=== PATIENT | male | born 1945 | race Caucasian/White ===

== ENCOUNTER 2020-03-02 00:29 | Outpatient (CLI) | payer MEDICARE, OTHER, SELFPAY ==
--- NOTE | 2020-03-02 08:45 | DI.NM_ITS ---
APPROVED REPORT Exam: Exercise Treadmill Patient Location: Out-Patient Room/Bed: Stress Nurse: Heather Gordillo RN BMI: 26.97 Baseline Rhythm: Sinus Bradycardia Indications: Patient reports SOB with activity and occasional midsternal chest pressure not associate d with activity. He states on February 25 he went to the ED for a heart rate of 162 and was treated then sent home. Medical History Medical History: Paroxysmal Atrial Fibrillation, Chronic Ischemic Heart Disease, Atherosclerosis of C oronary Artery without Angina Pectoris. Cardiac Medications: Amlodipine, Aspirin, Atorvastatin, Benazepril, Carvedilol, Fish Oil. Allergies: No known drug allergies Cardiac Risk Factors: FHX of CAD, HTN, Hyperlipidemia, Diabetes (insulin) Previous Cardiac Procedures: None Pretest Chest Pain Characteristics: None Exercise History: Physically active Physical Disabilities: None Lung Sounds: Clear to auscultation Heart Sounds: Bradycardia Stress Test Details Test: Exercise stress testing was performed using a Nura protocol. Nuclear Acquisition: Rest Tc-99m/Stress Tc-99m 1 day Rest Isotope: Tc-99m Sestamibi. Dose: 11.6 Date: 03/02/2020 Injection Time: 0850 Stress Isotope: Tc-99m Sestamibi. Dose: 37.6 Date: 03/02/2020 Injection Time: 1005 HR Resting HR Supine: 50 bpm Max Heart Rate (APMHR): 144 bpm Resting HR Standin bpm Target HR (85% APMHR): 122 bpm Max HR Achieved: 132 bpm % of APMHR: 91 HR response to stress: Normal HR response to stress BP Resting BP Supine: 150/68 mmHg Resting BP Standin/64 mmHg Max BP: 170/66 mmHg BP response to stress: Normal blood pressure response to stress. ECG Resting ECG: Sinus Bradycardia Ectopy: PAC'S Stress ECG: Sinus Tachycardia ST Change: Upsloping ST depression Lead(s): V3, V4, V5, V6 Stage: [address] Deviation: 1 mm Arrhythmia: None Comment: Chest Pressure (2/10) at 56 seconds of exercise. Recovery ST Change: ST Elevation Lead(s): ST depression Comment: ST segment depression till 29 seconds of recovery. Clinical Reason for Termination: SOB Stress Symptoms: Chest pressure at 56 seconds of exercise until approximately 4 minutes 9 seconds of recovery. Maximum chest pressure discomfort rated 5/10. Exercise duration: 4 min25 sec Highest Stage Reached: Stage 2: 2.5 mph at 12% grade. Exercise capacity: 6.33 METs Functional Capacity: Moderately diminished capacity Stress ECG Conclusion 1. This is an exercise nuclear stress test. Patient exercised for 4 minutes (6 METS) 2. Patient had 2 out of 10 chest pressure during exercise. 3. Patient had upsloping [address] depressions during stress. Stress Test Summary STAGE Time (mins) Speed (mph) Grade (%) HR BP SYMPTOMS METS Supine 50 150/68 Standing 58 168/64 1 3 1.7 10 117 170/66 4.6 1 min recovery 114 176/62 3 min recovery 76 154/68 6 min recovery 57 144/70 MPI Conclusion Patient's ejection fraction was 53% with stress. There were no wall motion abnormalities. There is no evidence of reversible or fixed ischemia on the imaging portion of this exam. This represents a discordant stress test with abnormal ECG accompanied by normal imaging. Radiologist Interpretation Radiologist Interpretation by: Barry Moreno MD Interpretation Date/Time: 03/04/2020 13:30:52
== END 2020-03-02 00:49 ==
PROVIDERS: PCP Family Medicine; Visit Provider Family Medicine
DX: R07.89 Other chest pain (principal); R06.02 Shortness of breath; R06.09 Other forms of dyspnea; R94.30 Abnormal result of cardiovascular function study, unspecified; I48.0 Paroxysmal atrial fibrillation; I25.10 Atherosclerotic heart disease of native coronary artery without angina pectoris; I10 Essential (primary) hypertension; E78.5 Hyperlipidemia, unspecified; Z82.49 Family history of ischemic heart disease and other diseases of the circulatory system
CPT/HCPCS: 78452; 93016; 93018; 93017

== ENCOUNTER 2020-07-16 13:00 | Outpatient (RCR) | payer MEDICARE, OTHER, SELFPAY ==
[2020-07-16 13:13] LABS: HCT 29.9 % (40.0-50.0); HGB 9.5 g/dL (13.5-17.5); MCH 30.8 pg (27.0-33.0); MCHC 31.8 % (32.0-36.0); MCV 97.1 fL (80-95); MPV 12.7 fL (8.0-11.0); Nucleated RBC 0 %; RBC 3.08 10^6/uL (4.36-5.78); RDW-SD 63.7 fL
[2020-07-16 13:31] LABS: ALT 32 U/L (16-63); AST 21 U/L (15-37); Albumin 3.5 g/dL (3.4-5.0); Alkaline Phosphatase 67 U/L (46-116); Anion Gap 9.3 mmol/L (3-11); BUN 23 mg/dL (7-18); Bilirubin, Total 0.3 mg/dL (0.2-1.0); CO2 23.7 mmol/L (21.0-32.0); CREATININE 0.99 mg/dL (0.70-1.30); Calcium 8.2 mg/dL (8.5-10.1); Chloride 106 mmol/L (98-107); Glucose 208 mg/dL (74-106); Potassium 4.5 mmol/L (3.5-5.1); Sodium 139 mmol/L (136-145); Total Protein 6.4 g/dL (6.4-8.2)
[2020-07-16 13:47] LABS: Absolute Lymphocyte Count 0.84 10^3/uL (1.2-3.4); Platelet Count 135 10^3/uL (130-400)
[2020-07-16 13:48] LABS: Absolute Basophil Count 0.04 10^3/uL (0.0-0.2); Absolute Eosinophil Count 0.13 10^3/uL (0.0-0.7); Absolute Monocyte Count 0.04 10^3/uL (0.1-0.8)
[2020-07-16] MEDS: Darbepoetin 300 MCG SYR SC (13:48)
[2020-07-16 13:49] LABS: Absolute Neutrophil Count 0.86 10^3/uL (1.2-6.7); Anisocytosis 2+; Diff Comment Manual Differential; Microcytosis 1+
[2020-07-16 13:50] LABS: Poikilocytes 3+
== END 2020-07-21 23:59 | disposition home or self-care (01) ==
LOC: INF 13:00
PROVIDERS: Internal Medicine Hematology & Oncology; PCP Family Medicine; Visit Provider Nurse Practitioner Family
DX: D47.1 Chronic myeloproliferative disease (principal); D64.9 Anemia, unspecified; C94.6 Myelodysplastic disease, not elsewhere classified
CPT/HCPCS: 36415; 80053; 96372; 85025; J0881

== ENCOUNTER 2020-08-13 05:51 | Outpatient (RCR) | payer MEDICARE, OTHER, SELFPAY ==
[2020-07-30 12:56] LABS: Abs Immature Grans 0.02 10^3/uL (0.0-0.06); Absolute Basophil Count 0.04 10^3/uL (0.0-0.2); Absolute Eosinophil Count 0.04 10^3/uL (0.0-0.7); Absolute Lymphocyte Count 0.82 10^3/uL (1.2-3.4); Absolute Monocyte Count 0.11 10^3/uL (0.1-0.8); Basophils % 2.1; Eosinophils % 2.1; HCT 30.4 % (40.0-50.0); Lymphocytes % 42.5; MCH 31.3 pg (27.0-33.0); MCHC 32.9 % (32.0-36.0); MPV 13.5 fL (8.0-11.0); Monocytes % 5.7; Neutrophils % 46.6; Nucleated RBC 0 %; RDW-SD 62.6 fL
[2020-07-30 13:10] LABS: ALT 29 U/L (16-63); AST 18 U/L (15-37); Albumin 3.5 g/dL (3.4-5.0); Alkaline Phosphatase 60 U/L (46-116); Anion Gap 9.1 mmol/L (3-11); BUN 19 mg/dL (7-18); Bilirubin, Total 0.4 mg/dL (0.2-1.0); CO2 25.9 mmol/L (21.0-32.0); CREATININE 1.01 mg/dL (0.70-1.30); Calcium 8.6 mg/dL (8.5-10.1); Chloride 104 mmol/L (98-107); Glucose 190 mg/dL (74-106); Potassium 4.2 mmol/L (3.5-5.1); Sodium 139 mmol/L (136-145); Total Protein 6.3 g/dL (6.4-8.2)
[2020-07-30 13:26] LABS: Diff Comment Agrees w/ Instrument; Hypochromasia 1+; Polychromasia Present
[2020-07-30 13:28] LABS: Poikilocytes 3+
[2020-07-30 13:42] LABS: Platelet Count 145 10^3/uL (130-400); WBC 1.93 10^3/uL (4.4-10.8)
[2020-07-30] MEDS: Darbepoetin 300 MCG SYR SC (13:44)
== END 2020-08-21 23:59 | disposition home or self-care (01) ==
LOC: INF 05:51
PROVIDERS: Internal Medicine Hematology & Oncology; PCP Family Medicine; Visit Provider Nurse Practitioner Family
DX: D47.1 Chronic myeloproliferative disease (principal); D64.9 Anemia, unspecified; C94.6 Myelodysplastic disease, not elsewhere classified
CPT/HCPCS: 36415; 80053; 96372; 85025; J0881

== ENCOUNTER 2020-09-03 03:47 | Outpatient (RCR) | payer MEDICARE, OTHER, SELFPAY ==
[2020-09-03 12:55] LABS: HCT 29.5 % (40.0-50.0); HGB 9.8 g/dL (13.5-17.5); MCH 31.3 pg (27.0-33.0); MCHC 33.2 % (32.0-36.0); MCV 94.2 fL (80-95); Nucleated RBC 0 %; RBC 3.13 10^6/uL (4.36-5.78); RDW 16.1 % (11.8-14.1); RDW-SD 56.2 fL; WBC 2.09 10^3/uL (4.4-10.8)
[2020-09-03 13:03] LABS: ALT 34 U/L (16-63); AST 22 U/L (15-37); Albumin 3.4 g/dL (3.4-5.0); Alkaline Phosphatase 65 U/L (46-116); Anion Gap 9.2 mmol/L (3-11); BUN 19 mg/dL (7-18); Bilirubin, Total 0.3 mg/dL (0.2-1.0); CO2 24.8 mmol/L (21.0-32.0); CREATININE 0.95 mg/dL (0.70-1.30); Calcium 8.1 mg/dL (8.5-10.1); Chloride 104 mmol/L (98-107); Glucose 242 mg/dL (74-106); Potassium 4.6 mmol/L (3.5-5.1); Sodium 138 mmol/L (136-145); Total Protein 6.4 g/dL (6.4-8.2)
[2020-09-03 13:16] LABS: Absolute Eosinophil Count 0.13 10^3/uL (0.0-0.7); Absolute Lymphocyte Count 0.59 10^3/uL (1.2-3.4); Absolute Monocyte Count 0.08 10^3/uL (0.1-0.8); Absolute Neutrophil Count 1.25 10^3/uL (1.2-6.7)
[2020-09-03 13:18] LABS: Anisocytosis 1+; Diff Comment Manual Differential; Other Cells % 2
[2020-09-03 13:19] LABS: Ovalocytes 2+; Poikilocytes 3+
[2020-09-03] MEDS: Darbepoetin 300 MCG SYR SC (13:20)
[2020-09-03 13:21] LABS: Platelet Count 146 10^3/uL (130-400)
== END 2020-09-20 23:59 | disposition home or self-care (01) ==
LOC: INF 03:47
PROVIDERS: Internal Medicine Hematology & Oncology; PCP Family Medicine; Visit Provider Nurse Practitioner Family
DX: D47.1 Chronic myeloproliferative disease (principal)
CPT/HCPCS: 36415; 80053; 96372; 85025; J0881

== ENCOUNTER 2020-10-21 14:00 | Outpatient (RCR) | payer MEDICARE, OTHER, SELFPAY ==
[2020-09-24 09:38] LABS: Abs Immature Grans 0.03 10^3/uL (0.0-0.06); Absolute Basophil Count 0.04 10^3/uL (0.0-0.2); Absolute Eosinophil Count 0.05 10^3/uL (0.0-0.7); Absolute Lymphocyte Count 0.75 10^3/uL (1.2-3.4); Absolute Monocyte Count 0.15 10^3/uL (0.1-0.8); Absolute Neutrophil Count 0.88 10^3/uL (1.2-6.7); Basophils % 2.1; Eosinophils % 2.6; HCT 30.2 % (40.0-50.0); HGB 9.7 g/dL (13.5-17.5); Immature Grans % 1.6; Lymphocytes % 39.5; MCH 30.8 pg (27.0-33.0); MCHC 32.1 % (32.0-36.0); MCV 95.9 fL (80-95); Monocytes % 7.9; Neutrophils % 46.3; Nucleated RBC 0 %; RBC 3.15 10^6/uL (4.36-5.78); RDW 16.9 % (11.8-14.1); RDW-SD 58.7 fL
[2020-09-24 09:50] LABS: ALT 37 U/L (16-63); AST 20 U/L (15-37); Albumin 3.8 g/dL (3.4-5.0); Alkaline Phosphatase 71 U/L (46-116); Anion Gap 4.6 mmol/L (3-11); BUN 18 mg/dL (7-18); Bilirubin, Total 0.3 mg/dL (0.2-1.0); CO2 25.4 mmol/L (21.0-32.0); CREATININE 0.95 mg/dL (0.70-1.30); Calcium 8.2 mg/dL (8.5-10.1); Chloride 107 mmol/L (98-107); Glucose 91 mg/dL (74-106); Potassium 4.2 mmol/L (3.5-5.1); Sodium 137 mmol/L (136-145); Total Protein 6.7 g/dL (6.4-8.2)
[2020-09-24] MEDS: Darbepoetin 300 MCG SYR SC (10:01)
[2020-09-24 10:03] LABS: Platelet Count 129 10^3/uL (130-400)
[2020-09-24 10:04] LABS: Anisocytosis 2+; Diff Comment Diff Reviewed; Hypochromasia 1+; Microcytosis 1+; Ovalocytes 2+; Polychromasia Present; Schistocytes 1+
[2020-09-24 10:10] LABS: Poikilocytes 2+
[2020-10-21] MEDS: Darbepoetin 300 MCG SYR SC (14:07)
== END 2020-10-21 23:59 | disposition home or self-care (01) ==
LOC: INF 14:00
PROVIDERS: Internal Medicine Hematology & Oncology; PCP Family Medicine; Visit Provider Nurse Practitioner Family
DX: D47.1 Chronic myeloproliferative disease (principal); C94.6 Myelodysplastic disease, not elsewhere classified
CPT/HCPCS: 36415; 80053; 96372; 85025; J0881

== ENCOUNTER 2020-11-09 13:00 | Outpatient (RCR) | payer MEDICARE, OTHER, SELFPAY ==
[2020-11-09 12:52] LABS: Abs Immature Grans 0.03 10^3/uL (0.0-0.06); Absolute Basophil Count 0.04 10^3/uL (0.0-0.2); Absolute Eosinophil Count 0.11 10^3/uL (0.0-0.7); Absolute Lymphocyte Count 0.88 10^3/uL (1.2-3.4); Absolute Monocyte Count 0.15 10^3/uL (0.1-0.8); Absolute Neutrophil Count 0.62 10^3/uL (1.2-6.7); Basophils % 2.2; HCT 28.5 % (40.0-50.0); HGB 9.2 g/dL (13.5-17.5); Immature Grans % 1.6; Lymphocytes % 48.1; MCH 30.8 pg (27.0-33.0); MCHC 32.3 % (32.0-36.0); MCV 95.3 fL (80-95); Monocytes % 8.2; Neutrophils % 33.9; Nucleated RBC 0 %; RBC 2.99 10^6/uL (4.36-5.78); RDW-SD 61.7 fL
[2020-11-09 13:01] LABS: ALT 34 U/L (16-63); AST 19 U/L (15-37); Albumin 3.5 g/dL (3.4-5.0); Alkaline Phosphatase 62 U/L (46-116); Anion Gap 7.1 mmol/L (3-11); BUN 26 mg/dL (7-18); Bilirubin, Total 0.4 mg/dL (0.2-1.0); CO2 24.9 mmol/L (21.0-32.0); CREATININE 1.08 mg/dL (0.70-1.30); Calcium 8.3 mg/dL (8.5-10.1); Chloride 108 mmol/L (98-107); Glucose 139 mg/dL (74-106); Potassium 3.9 mmol/L (3.5-5.1); Sodium 140 mmol/L (136-145); Total Protein 6.3 g/dL (6.4-8.2)
[2020-11-09 13:27] LABS: Anisocytosis 2+; Diff Comment Agrees w/ Instrument; Polychromasia Present
[2020-11-09 13:28] LABS: Platelet Count 126 10^3/uL (130-400)
[2020-11-09 13:29] LABS: Acanthocytes 1+; Ovalocytes 2+; Poikilocytes 2+; Schistocytes 1+
[2020-11-09] MEDS: Darbepoetin 300 MCG SYR SC (13:38)
[2020-11-09 13:46] LABS: WBC 1.83 10^3/uL (4.4-10.8)
== END 2020-11-21 23:59 | disposition home or self-care (01) ==
LOC: INF 13:00
PROVIDERS: Internal Medicine Hematology & Oncology; PCP Family Medicine; Visit Provider Nurse Practitioner Family
DX: D47.1 Chronic myeloproliferative disease (principal); D64.9 Anemia, unspecified
CPT/HCPCS: 36415; 80053; 96372; 85025; J0881

== ENCOUNTER 2021-01-11 02:20 | Outpatient (RCR) | payer MEDICARE, OTHER, SELFPAY ==
[2020-12-21 13:01] LABS: HCT 26.4 % (40.0-50.0); MCH 31.5 pg (27.0-33.0); MCHC 32.6 % (32.0-36.0); MCV 96.7 fL (80-95); Nucleated RBC 0 %; RBC 2.73 10^6/uL (4.36-5.78); RDW 18.8 % (11.8-14.1); RDW-SD 65.1 fL
[2020-12-21 13:13] LABS: ALT 29 U/L (16-63); AST 16 U/L (15-37); Albumin 3.5 g/dL (3.4-5.0); Alkaline Phosphatase 65 U/L (46-116); Anion Gap 5.7 mmol/L (3-11); BUN 21 mg/dL (7-18); Bilirubin, Total 0.4 mg/dL (0.2-1.0); CO2 28.3 mmol/L (21.0-32.0); CREATININE 1.3 mg/dL (0.70-1.30); Calcium 8.3 mg/dL (8.5-10.1); Chloride 106 mmol/L (98-107); Estimated GFR 53.53 (mL/min/1.73m2); Glucose 160 mg/dL (74-106); Potassium 4.3 mmol/L (3.5-5.1); Sodium 140 mmol/L (136-145); Total Protein 6.2 g/dL (6.4-8.2)
[2020-12-21 13:51] LABS: HGB 8.6 g/dL (13.5-17.5)
[2020-12-21] MEDS: Darbepoetin 300 MCG SYR SC (13:51)
[2020-12-21 13:52] LABS: Absolute Basophil Count 0.06 10^3/uL (0.0-0.2); Absolute Eosinophil Count 0.22 10^3/uL (0.0-0.7); Absolute Lymphocyte Count 0.56 10^3/uL (1.2-3.4); Absolute Neutrophil Count 0.66 10^3/uL (1.2-6.7); Anisocytosis 2+; Diff Comment Manual Differential; Hypochromasia 2+; Microcytosis 1+; Ovalocytes 2+
[2020-12-21 13:53] LABS: Platelet Count 155 10^3/uL (130-400); Poikilocytes 2+
[2021-01-11 12:54] LABS: Abs Immature Grans 0.05 10^3/uL (0.0-0.06); HCT 25.6 % (40.0-50.0); HGB 8.3 g/dL (13.5-17.5); MCH 31.2 pg (27.0-33.0); MCHC 32.4 % (32.0-36.0); MCV 96.2 fL (80-95); Nucleated RBC 0 %; RBC 2.66 10^6/uL (4.36-5.78); RDW-SD 63.8 fL
[2021-01-11 13:03] LABS: ALT 31 U/L (16-63); AST 19 U/L (15-37); Albumin 3.4 g/dL (3.4-5.0); Alkaline Phosphatase 73 U/L (46-116); Anion Gap 8.4 mmol/L (3-11); BUN 20 mg/dL (7-18); Bilirubin, Total 0.5 mg/dL (0.2-1.0); CO2 26.6 mmol/L (21.0-32.0); CREATININE 1.1 mg/dL (0.70-1.30); Calcium 8.4 mg/dL (8.5-10.1); Chloride 106 mmol/L (98-107); Glucose 158 mg/dL (74-106); Potassium 4.3 mmol/L (3.5-5.1); Sodium 141 mmol/L (136-145); Total Protein 6.3 g/dL (6.4-8.2)
[2021-01-11 13:30] LABS: WBC 1.73 10^3/uL (4.4-10.8)
[2021-01-11 13:31] LABS: Absolute Basophil Count 0.02 10^3/uL (0.0-0.2); Absolute Eosinophil Count 0.21 10^3/uL (0.0-0.7); Absolute Lymphocyte Count 0.71 10^3/uL (1.2-3.4); Absolute Monocyte Count 0.14 10^3/uL (0.1-0.8); Platelet Count 135 10^3/uL (130-400)
[2021-01-11 13:32] LABS: Absolute Neutrophil Count 0.65 10^3/uL (1.2-6.7); Anisocytosis 2+; Diff Comment Manual Differential
[2021-01-11 13:33] LABS: Hypochromasia 1+; Microcytosis 1+; Poikilocytes 3+; Polychromasia Present
[2021-01-11] MEDS: Darbepoetin 300 MCG SYR SC (13:57)
== END 2021-01-19 23:59 | disposition home or self-care (01) ==
LOC: INF 02:20
PROVIDERS: Internal Medicine Hematology & Oncology; PCP Family Medicine; Visit Provider Nurse Practitioner Family
DX: D47.1 Chronic myeloproliferative disease (principal); D64.9 Anemia, unspecified; C94.6 Myelodysplastic disease, not elsewhere classified
CPT/HCPCS: 36415; 80053; 96372; 85025; J0881

== ENCOUNTER 2021-02-01 13:00 | Outpatient (RCR) | payer MEDICARE, OTHER, SELFPAY ==
[2021-02-01 13:17] LABS: HCT 24.1 % (40.0-50.0); HGB 7.7 g/dL (13.5-17.5); MCH 30.8 pg (27.0-33.0); MCV 96.4 fL (80-95); Nucleated RBC 0 %; RDW-SD 63.7 fL
[2021-02-01 13:49] LABS: ALT 31 U/L (16-63); AST 21 U/L (15-37); Albumin 3.5 g/dL (3.4-5.0); Alkaline Phosphatase 68 U/L (46-116); Anion Gap 7.7 mmol/L (3-11); BUN 20 mg/dL (7-18); Bilirubin, Total 0.4 mg/dL (0.2-1.0); CO2 26.3 mmol/L (21.0-32.0); CREATININE 1.2 mg/dL (0.70-1.30); Calcium 8.1 mg/dL (8.5-10.1); Chloride 108 mmol/L (98-107); Estimated GFR 58.71 (mL/min/1.73m2); Glucose 184 mg/dL (74-106); Potassium 4.4 mmol/L (3.5-5.1); Sodium 142 mmol/L (136-145); Total Protein 5.8 g/dL (6.4-8.2)
[2021-02-01] MEDS: Darbepoetin 300 MCG SYR SC (14:11)
[2021-02-01 14:34] LABS: Absolute Basophil Count 0.16 10^3/uL (0.0-0.2); Absolute Eosinophil Count 0.17 10^3/uL (0.0-0.7); Absolute Lymphocyte Count 0.68 10^3/uL (1.2-3.4); Absolute Monocyte Count 0.02 10^3/uL (0.1-0.8); Absolute Neutrophil Count 0.91 10^3/uL (1.2-6.7); Bands % 1; Platelet Count 127 10^3/uL (130-400)
[2021-02-01 14:35] LABS: Anisocytosis 2+; Diff Comment Manual Differential; Hypochromasia 2+; Microcytosis 1+; Ovalocytes 3+; Schistocytes 1+
[2021-02-01 14:38] LABS: Poikilocytes 3+; WBC 1.94 10^3/uL (4.4-10.8)
== END 2021-02-18 23:59 | disposition home or self-care (01) ==
LOC: INF 13:00
PROVIDERS: Internal Medicine Hematology & Oncology; PCP Family Medicine; Visit Provider Internal Medicine
DX: D47.1 Chronic myeloproliferative disease (principal); D64.9 Anemia, unspecified; C94.6 Myelodysplastic disease, not elsewhere classified
CPT/HCPCS: 36415; 80053; 96372; 85025; J0881

== ENCOUNTER 2021-02-11 03:59 | Outpatient (CLI) | payer MEDICARE, OTHER, SELFPAY ==
--- NOTE | 2021-02-11 | DI.CT_ITS ---
EXAM: CT CHEST/ABD/PEL W CLINICAL HISTORY: LOW ABD PAIN,R10.30,? INGUINAL ADENOPATHY. TECHNIQUE: Imaging Protocol: Axial computed tomography images with coronal and sagittal reformatted images were created and reviewed CONTRAST MATERIAL: Intravenous: Visipaque 320 contrast volume:100 ml Oral: yes COMPARISON: CT CT UROGRAM from 08/11/[address] UROGRAM from 08/11/2011 US US SCROTUM AND CONTENTS from 04/28/2019 US US SCROTUM AND CONTENTS from 04/28/2019 FINDINGS: CHEST: Thyroid: Mostly obscured by artifact. Tracheobronchial tree: Patent where visualized. Mediastinum and Liv: No dominant adenopathy or fluid collection. Pulmonary parenchyma: No consolidation or dominant measurable mass. No architectural distortion. Pleura: No effusion or pneumothorax. Lymph nodes: Within normal limits. Aorta: Thoracic portion non-dilated. Mild atherosclerotic changes. Heart: Mild left atrial and left ventricular dilatation. Moderate coronary artery calcifications. Bones: Degenerative disc changes. ABDOMEN: Liver: Normal density. No measurable mass. Gallbladder and biliary tract: No radiodense calculus or dilation. Pancreas: Normal density, no abnormal calcifications or inflammatory process. Spleen: Normal. Kidneys: Normal size, contour and axis. No radiodense stones or obstructive uropathy. No masses seen. Adrenal glands: Stable adrenal nodules, likely adenomas. Aorta: Abdominal portion non-dilated. [id number] calcification. Lymph nodes: Within normal limits. PELVIS: Bladder: Symmetric distention, no gross wall thickening. Bowel: No obstruction or bowel wall thickening. Normal appendix. Moderate quantity of stool. Quest ion of a small diverticulum of the 2nd portion of the duodenum. Peritoneal cavity: No ascites, collection or mesenteric inflammatory response. Lymph nodes: No pelvi c or inguinal adenopathy. Bones: Degenerative disc changes and facet degenerative changes. Reproductive organs: Mildly enlarged prostate. IMPRESSION: No evidence of adenopathy in the chest abdomen or pelvis. No acute abnormality is seen. RADIATION DOSE DELIVERED: 1,592.32mGy.cm Total DLP DATA REPOSITORY: All CT scans at this facility are submitted to the National Radiology Data Registry (NRDR) Dose Index Registry (DIR) with the [employer] ([employer]). RADIATION OPTIMIZATION: All CT scans at this facility use at least one of these dose optimization te chniques: automated exposure control; mA and/or kV adjustment per patient size (includes targeted exa ms where dose is matched to clinical indication); or iterative reconstruction.
[2021-02-11] MEDS: Breeza Beverage 473 ML BTL PO ×2 (12:37→12:38)
[2021-02-11] MEDS: Omnipaque 350 MG/ML 50 ML BTL PO (12:38)
[2021-02-11] MEDS: Normal Saline - Diluent 50 ML VIAL IV (13:58)
== END 2021-02-11 04:19 ==
PROVIDERS: PCP Family Medicine; Visit Provider Internal Medicine Hematology & Oncology
DX: R10.30 Lower abdominal pain, unspecified (principal); N40.0 Benign prostatic hyperplasia without lower urinary tract symptoms
CPT/HCPCS: 74177; 71260; Q9967

== ENCOUNTER 2021-03-01 13:00 | Outpatient (RCR) | payer MEDICARE, OTHER, SELFPAY ==
[2021-03-01 13:05] LABS: HGB 8.7 g/dL (13.5-17.5); MCH 31.6 pg (27.0-33.0); MCHC 32.2 % (32.0-36.0); MCV 98.2 fL (80-95); Nucleated RBC 0 %; RBC 2.75 10^6/uL (4.36-5.78); RDW 19.3 % (11.8-14.1); RDW-SD 66.4 fL
[2021-03-01 13:19] LABS: ALT 32 U/L (16-63); AST 18 U/L (15-37); Albumin 3.5 g/dL (3.4-5.0); Alkaline Phosphatase 63 U/L (46-116); Anion Gap 7.7 mmol/L (3-11); BUN 21 mg/dL (7-18); Bilirubin, Total 0.3 mg/dL (0.2-1.0); CO2 25.3 mmol/L (21.0-32.0); CREATININE 1.1 mg/dL (0.70-1.30); Calcium 8.1 mg/dL (8.5-10.1); Chloride 108 mmol/L (98-107); Glucose 233 mg/dL (74-106); Potassium 4.6 mmol/L (3.5-5.1); Sodium 141 mmol/L (136-145); Total Protein 6.2 g/dL (6.4-8.2)
[2021-03-01 13:48] LABS: Absolute Basophil Count 0.12 10^3/uL (0.0-0.2); Absolute Eosinophil Count 0.12 10^3/uL (0.0-0.7); Absolute Lymphocyte Count 0.63 10^3/uL (1.2-3.4); Absolute Monocyte Count 0.08 10^3/uL (0.1-0.8); Absolute Neutrophil Count 0.68 10^3/uL (1.2-6.7)
[2021-03-01 13:49] LABS: Other Cells % 2
[2021-03-01 13:50] LABS: Anisocytosis 2+; Basophilic Stippling 1+; Diff Comment Manual Differential; Hypochromasia 1+; Macrocytosis 1+; Microcytosis 1+; Platelet Count 136 10^3/uL (130-400)
[2021-03-01 13:51] LABS: Ovalocytes 3+; Poikilocytes 3+; Polychromasia Present
[2021-03-01 14:00] LABS: WBC 1.67 10^3/uL (4.4-10.8)
== END 2021-03-21 23:59 | disposition home or self-care (01) ==
LOC: INF 13:00
PROVIDERS: Internal Medicine Hematology & Oncology; PCP Family Medicine; Visit Provider Internal Medicine
DX: D47.1 Chronic myeloproliferative disease (principal); C94.6 Myelodysplastic disease, not elsewhere classified; D64.9 Anemia, unspecified
CPT/HCPCS: 36415; 80053; 96372; 85025; J0881

== ENCOUNTER 2021-03-22 13:00 | Outpatient (RCR) | payer MEDICARE, OTHER, SELFPAY ==
[2021-03-22 13:13] LABS: HGB 8.5 g/dL (13.5-17.5); MCH 30.9 pg (27.0-33.0); MCHC 32.7 % (32.0-36.0); MCV 94.5 fL (80-95); Nucleated RBC 0 %; RBC 2.75 10^6/uL (4.36-5.78); RDW 19.5 % (11.8-14.1); RDW-SD 62.9 fL
[2021-03-22 13:22] LABS: ALT 28 U/L (16-63); AST 15 U/L (15-37); Albumin 3.5 g/dL (3.4-5.0); Alkaline Phosphatase 65 U/L (46-116); Anion Gap 6.7 mmol/L (3-11); BUN 21 mg/dL (7-18); Bilirubin, Total 0.3 mg/dL (0.2-1.0); CO2 26.3 mmol/L (21.0-32.0); CREATININE 0.9 mg/dL (0.70-1.30); Calcium 8.2 mg/dL (8.5-10.1); Chloride 108 mmol/L (98-107); Glucose 205 mg/dL (74-106); Potassium 4.6 mmol/L (3.5-5.1); Sodium 141 mmol/L (136-145); Total Protein 6.1 g/dL (6.4-8.2)
[2021-03-22 13:35] LABS: WBC 1.44 10^3/uL (4.4-10.8)
[2021-03-22 13:36] LABS: Absolute Basophil Count 0.06 10^3/uL (0.0-0.2); Absolute Eosinophil Count 0.16 10^3/uL (0.0-0.7); Absolute Lymphocyte Count 0.66 10^3/uL (1.2-3.4); Absolute Monocyte Count 0.01 10^3/uL (0.1-0.8); Absolute Neutrophil Count 0.55 10^3/uL (1.2-6.7); Anisocytosis 2+; Bands % 1; Diff Comment Manual Differential
[2021-03-22 13:37] LABS: Hypochromasia 2+; Macrocytosis 1+; Microcytosis 1+; Ovalocytes 2+; Poikilocytes 2+; Polychromasia Present
[2021-03-22 13:39] LABS: Platelet Count 128 10^3/uL (130-400)
== END 2021-04-20 23:59 | disposition home or self-care (01) ==
LOC: INF 13:00
PROVIDERS: Internal Medicine Hematology & Oncology; PCP Family Medicine; Visit Provider Internal Medicine
DX: D47.1 Chronic myeloproliferative disease (principal); D64.9 Anemia, unspecified; C94.6 Myelodysplastic disease, not elsewhere classified
CPT/HCPCS: 36415; 80053; 96372; 85025; J0881

== ENCOUNTER 2021-05-10 02:04 | Outpatient (RCR) | payer MEDICARE, OTHER, SELFPAY ==
[2021-04-26 13:15] LABS: HCT 26.7 % (40.0-50.0); HGB 8.6 g/dL (13.5-17.5); MCH 31.9 pg (27.0-33.0); MCHC 32.2 % (32.0-36.0); MCV 98.9 fL (80-95); Nucleated RBC 0 %; Platelet Count 114 10^3/uL (130-400); RDW 19.5 % (11.8-14.1); RDW-SD 66.6 fL
[2021-04-26 13:28] LABS: ALT 29 U/L (16-63); AST 19 U/L (15-37); Albumin 3.6 g/dL (3.4-5.0); Alkaline Phosphatase 66 U/L (46-116); Anion Gap 7.4 mmol/L (3-11); BUN 20 mg/dL (7-18); Bilirubin, Total 0.4 mg/dL (0.2-1.0); CO2 26.6 mmol/L (21.0-32.0); Calcium 8.5 mg/dL (8.5-10.1); Chloride 108 mmol/L (98-107); Glucose 123 mg/dL (74-106); Potassium 4.6 mmol/L (3.5-5.1); Sodium 142 mmol/L (136-145); Total Protein 6.5 g/dL (6.4-8.2)
[2021-04-26 13:40] LABS: Absolute Basophil Count 0.05 10^3/uL (0.0-0.2); Absolute Eosinophil Count 0.08 10^3/uL (0.0-0.7); Absolute Lymphocyte Count 1.04 10^3/uL (1.2-3.4); Absolute Monocyte Count 0.02 10^3/uL (0.1-0.8); Atypical Lymphocytes % 1
[2021-04-26 13:41] LABS: Diff Comment Manual Differential
[2021-04-26 13:42] LABS: Anisocytosis 2+
[2021-04-26 13:43] LABS: Poikilocytes 2+
[2021-04-26 14:12] LABS: WBC 1.62 10^3/uL (4.4-10.8)
[2021-04-26 14:14] LABS: Absolute Neutrophil Count 0.44 10^3/uL (1.2-6.7)
[2021-05-10 13:34] LABS: Abs Immature Grans 0.01 10^3/uL (0.0-0.06); Absolute Basophil Count 0.03 10^3/uL (0.0-0.2); HCT 25.3 % (40.0-50.0); HGB 8.1 g/dL (13.5-17.5); MCH 31.4 pg (27.0-33.0); MCV 98.1 fL (80-95); Nucleated RBC 0 %; RBC 2.58 10^6/uL (4.36-5.78); RDW 20.2 % (11.8-14.1); RDW-SD 68.2 fL
[2021-05-10 14:08] LABS: Platelet Count 115 10^3/uL (130-400)
[2021-05-10 14:10] LABS: Absolute Neutrophil Count 0.48 10^3/uL (1.2-6.7); Bands % 2
[2021-05-10 14:11] LABS: Absolute Lymphocyte Count 0.83 10^3/uL (1.2-3.4)
[2021-05-10 14:12] LABS: Absolute Eosinophil Count 0.03 10^3/uL (0.0-0.7); Absolute Monocyte Count 0.14 10^3/uL (0.1-0.8); Atypical Lymphocytes % 3
[2021-05-10 14:13] LABS: Diff Comment Manual Differential
[2021-05-10 14:14] LABS: Anisocytosis 3+; Polychromasia Present
[2021-05-10 14:15] LABS: Ovalocytes 2+; Poikilocytes 2+
[2021-05-10 14:17] LABS: ALT 28 U/L (16-63); AST 17 U/L (15-37); Albumin 3.4 g/dL (3.4-5.0); Alkaline Phosphatase 62 U/L (46-116); Anion Gap 6.1 mmol/L (3-11); BUN 20 mg/dL (7-18); Bilirubin, Total 0.4 mg/dL (0.2-1.0); CO2 25.9 mmol/L (21.0-32.0); Calcium 8.1 mg/dL (8.5-10.1); Chloride 109 mmol/L (98-107); Glucose 199 mg/dL (74-106); Potassium 4.3 mmol/L (3.5-5.1); Sodium 141 mmol/L (136-145); Total Protein 6.1 g/dL (6.4-8.2)
== END 2021-05-21 23:59 | disposition home or self-care (01) ==
LOC: INF 02:04
PROVIDERS: Internal Medicine Hematology & Oncology; PCP Family Medicine; Visit Provider Internal Medicine
DX: D47.1 Chronic myeloproliferative disease (principal); D46.9 Myelodysplastic syndrome, unspecified
CPT/HCPCS: 36415; 80053; 96372; 85025; J0881

== ENCOUNTER 2021-06-21 02:04 | Outpatient (RCR) | payer MEDICARE, OTHER, SELFPAY ==
[2021-05-24 13:06] LABS: Abs Immature Grans 0.02 10^3/uL (0.0-0.06); HCT 24.4 % (40.0-50.0); HGB 7.7 g/dL (13.5-17.5); MCH 30.9 pg (27.0-33.0); MCHC 31.6 % (32.0-36.0); Nucleated RBC 0 %; RBC 2.49 10^6/uL (4.36-5.78); RDW 20.6 % (11.8-14.1); RDW-SD 69.8 fL
[2021-05-24 13:17] LABS: ALT 31 U/L (16-63); AST 18 U/L (15-37); Albumin 3.5 g/dL (3.4-5.0); Alkaline Phosphatase 60 U/L (46-116); BUN 22 mg/dL (7-18); Bilirubin, Total 0.4 mg/dL (0.2-1.0); Chloride 108 mmol/L (98-107); Glucose 195 mg/dL (74-106); Potassium 4.4 mmol/L (3.5-5.1); Sodium 140 mmol/L (136-145); Total Protein 6.2 g/dL (6.4-8.2)
[2021-05-24 13:30] LABS: Absolute Basophil Count 0.04 10^3/uL (0.0-0.2); Absolute Eosinophil Count 0.17 10^3/uL (0.0-0.7); Absolute Lymphocyte Count 0.67 10^3/uL (1.2-3.4); Absolute Monocyte Count 0.03 10^3/uL (0.1-0.8); Absolute Neutrophil Count 0.54 10^3/uL (1.2-6.7); Atypical Lymphocytes % 2
[2021-05-24 13:34] LABS: Anisocytosis 3+; Basophilic Stippling Present; Diff Comment Manual Differential; Macrocytosis 1+; Microcytosis 2+; Poikilocytes 3+
[2021-05-24 13:37] LABS: Platelet Count 124 10^3/uL (130-400)
[2021-06-07 13:15] LABS: HCT 24.8 % (40.0-50.0); HGB 7.7 g/dL (13.5-17.5); MCH 30.4 pg (27.0-33.0); Nucleated RBC 0 %; RBC 2.53 10^6/uL (4.36-5.78); RDW 20.6 % (11.8-14.1); RDW-SD 70.4 fL
[2021-06-07 13:38] LABS: Absolute Basophil Count 0.05 10^3/uL (0.0-0.2); Absolute Eosinophil Count 0.12 10^3/uL (0.0-0.7); Absolute Lymphocyte Count 0.66 10^3/uL (1.2-3.4); Absolute Monocyte Count 0.06 10^3/uL (0.1-0.8)
[2021-06-07 13:39] LABS: Anisocytosis 2+; Diff Comment Manual Differential
[2021-06-07 13:40] LABS: Platelet Count 118 10^3/uL (130-400); Poikilocytes 2+
[2021-06-07 13:49] LABS: ALT 27 U/L (16-63); AST 19 U/L (15-37); Albumin 3.6 g/dL (3.4-5.0); Alkaline Phosphatase 69 U/L (46-116); Anion Gap 6.2 mmol/L (3-11); BUN 19 mg/dL (7-18); Bilirubin, Total 0.4 mg/dL (0.2-1.0); CO2 26.8 mmol/L (21.0-32.0); CREATININE 0.8 mg/dL (0.70-1.30); Calcium 8.3 mg/dL (8.5-10.1); Chloride 109 mmol/L (98-107); Glucose 166 mg/dL (74-106); Potassium 4.3 mmol/L (3.5-5.1); Sodium 142 mmol/L (136-145); Total Protein 6.4 g/dL (6.4-8.2)
[2021-06-07 13:56] LABS: Absolute Neutrophil Count 0.33 10^3/uL (1.2-6.7); WBC 1.23 10^3/uL (4.4-10.8)
[2021-06-10 09:35] LABS: WBC 1.45 10^3/uL (4.4-10.8)
== END 2021-06-21 23:59 | disposition home or self-care (01) ==
LOC: INF 02:04
PROVIDERS: Internal Medicine Hematology & Oncology; PCP Family Medicine; Visit Provider Internal Medicine
DX: D47.1 Chronic myeloproliferative disease (principal); D64.9 Anemia, unspecified
CPT/HCPCS: 36415; 80053; 96372; 85025; J0881

== ENCOUNTER 2021-07-14 10:00 | Outpatient (RCR) | payer MEDICARE, OTHER, SELFPAY ==
[2021-06-30] MEDS: Normal Saline Flush 10 ML SYR IVP (08:03)
[2021-06-30 08:28] LABS: Absolute Basophil Count 0.02 10^3/uL (0.0-0.2); HCT 22.9 % (40.0-50.0); HGB 7.1 g/dL (13.5-17.5); Platelet Count 150 10^3/uL (130-400); RBC 2.29 10^6/uL (4.36-5.78); RDW 21.2 % (11.8-14.1); RDW-SD 73.6 fL
[2021-06-30 08:43] LABS: ALT 26 U/L (16-63); AST 14 U/L (15-37); Albumin 3.4 g/dL (3.4-5.0); Alkaline Phosphatase 62 U/L (46-116); Anion Gap 7.5 mmol/L (3-11); BUN 23 mg/dL (7-18); Bilirubin, Total 0.4 mg/dL (0.2-1.0); CO2 22.5 mmol/L (21.0-32.0); Chloride 108 mmol/L (98-107); Glucose 278 mg/dL (74-106); Potassium 4.4 mmol/L (3.5-5.1); Sodium 138 mmol/L (136-145); Total Protein 6.1 g/dL (6.4-8.2)
[2021-06-30 08:47] LABS: WBC 1.15 10^3/uL (4.4-10.8)
[2021-06-30 09:26] LABS: Absolute Eosinophil Count 0.17 10^3/uL (0.0-0.7); Absolute Monocyte Count 0.08 10^3/uL (0.1-0.8); Absolute Neutrophil Count 0.47 10^3/uL (1.2-6.7)
[2021-06-30 09:27] LABS: Nucleated RBC 1 %
[2021-06-30 09:28] LABS: Anisocytosis 3+; Diff Comment Manual Differential; Polychromasia Present
[2021-06-30 09:30] LABS: Poikilocytes 2+
[2021-06-30 09:40] VITALS: BP 148/65; PULSE 52; RESP 18; TEMP 36.7; O2SAT 99
[2021-06-30 10:08] VITALS: BP 146/68; PULSE 47; RESP 18; TEMP 36.7; O2SAT 99
[2021-06-30 10:23] VITALS: BP 144/66; PULSE 48; RESP 18; TEMP 36.9; O2SAT 98
[2021-06-30 11:13] VITALS: BP 152/65; PULSE 49; RESP 18; TEMP 36.7; O2SAT 99
[2021-06-30 11:55] VITALS: BP 142/60; PULSE 50; RESP 20; TEMP 36.4; O2SAT 99
[2021-07-14 08:33] LABS: Abs Immature Grans 0.02 10^3/uL (0.0-0.06); HCT 24.5 % (40.0-50.0); HGB 7.7 g/dL (13.5-17.5); MCH 30.6 pg (27.0-33.0); MCHC 31.4 % (32.0-36.0); MCV 97.2 fL (80-95); Nucleated RBC 0 %; RBC 2.52 10^6/uL (4.36-5.78); RDW 19.2 % (11.8-14.1); RDW-SD 65.2 fL
[2021-07-14 08:43] LABS: ALT 29 U/L (16-63); AST 17 U/L (15-37); Albumin 3.5 g/dL (3.4-5.0); Alkaline Phosphatase 61 U/L (46-116); Anion Gap 7.2 mmol/L (3-11); BUN 18 mg/dL (7-18); Bilirubin, Total 0.4 mg/dL (0.2-1.0); CO2 26.8 mmol/L (21.0-32.0); CREATININE 0.9 mg/dL (0.70-1.30); Calcium 8.2 mg/dL (8.5-10.1); Chloride 109 mmol/L (98-107); Glucose 98 mg/dL (74-106); Potassium 4.2 mmol/L (3.5-5.1); Sodium 143 mmol/L (136-145); Total Protein 6.2 g/dL (6.4-8.2)
[2021-07-14 08:56] LABS: Bands % 3
[2021-07-14 08:57] LABS: Absolute Basophil Count 0.03 10^3/uL (0.0-0.2); Absolute Eosinophil Count 0.17 10^3/uL (0.0-0.7); Absolute Lymphocyte Count 0.69 10^3/uL (1.2-3.4); Absolute Monocyte Count 0.03 10^3/uL (0.1-0.8); Absolute Neutrophil Count 0.39 10^3/uL (1.2-6.7)
[2021-07-14 08:58] LABS: Anisocytosis 2+; Diff Comment Manual Differential; Polychromasia Present
[2021-07-14 08:59] LABS: Platelet Count 114 10^3/uL (130-400); Poikilocytes 2+
[2021-07-14 09:42] VITALS: BP 158/62; PULSE 50; RESP 17; TEMP 36.5; O2SAT 96
[2021-07-14 10:37] VITALS: BP 159/67; PULSE 52; RESP 17; TEMP 36; O2SAT 98
[2021-07-14 10:50] VITALS: BP 163/69; PULSE 54; RESP 18; TEMP 36.3; O2SAT 98
[2021-07-14 11:20] VITALS: BP 154/65; PULSE 52; RESP 18; TEMP 36.2; O2SAT 98
== END 2021-07-21 23:59 | disposition home or self-care (01) ==
LOC: INF 10:00
PROVIDERS: PCP Family Medicine; Visit Provider Internal Medicine Hematology & Oncology
DX: D46.9 Myelodysplastic syndrome, unspecified (principal); D75.81 Myelofibrosis
CPT/HCPCS: 36415; 36430; 80053; 86850; 86900; 86901; 86920; 85025; P9016

== ENCOUNTER 2021-08-11 09:00 | Outpatient (RCR) | payer MEDICARE, OTHER, SELFPAY ==
[2021-07-22 00:28] VITALS: BP 154/65; PULSE 52; RESP 18; TEMP 36.2
[2021-07-28] MEDS: Normal Saline Flush 10 ML SYR IVP (08:14)
[2021-07-28 08:21] LABS: HGB 7.9 g/dL (13.5-17.5); MCH 30.4 pg (27.0-33.0); MCHC 31.6 % (32.0-36.0); MCV 96.2 fL (80-95); Nucleated RBC 0 %; Platelet Count 136 10^3/uL (130-400); RDW 19.3 % (11.8-14.1); RDW-SD 65.1 fL
[2021-07-28 08:37] LABS: ALT 34 U/L (16-63); AST 18 U/L (15-37); Albumin 3.4 g/dL (3.4-5.0); Alkaline Phosphatase 65 U/L (46-116); Anion Gap 2.6 mmol/L (3-11); BUN 17 mg/dL (7-18); Bilirubin, Total 0.4 mg/dL (0.2-1.0); CO2 28.4 mmol/L (21.0-32.0); Calcium 8.1 mg/dL (8.5-10.1); Chloride 109 mmol/L (98-107); Glucose 183 mg/dL (74-106); Potassium 4.2 mmol/L (3.5-5.1); Sodium 140 mmol/L (136-145); Total Protein 6.2 g/dL (6.4-8.2)
[2021-07-28 08:53] LABS: Absolute Neutrophil Count 0.52 10^3/uL (1.2-6.7); Bands % 1; WBC 1.41 10^3/uL (4.4-10.8)
[2021-07-28 08:54] LABS: Absolute Basophil Count 0.14 10^3/uL (0.0-0.2); Absolute Eosinophil Count 0.16 10^3/uL (0.0-0.7); Absolute Lymphocyte Count 0.58 10^3/uL (1.2-3.4)
[2021-07-28 08:55] LABS: Anisocytosis 2+; Diff Comment Manual Differential; Hypochromasia 1+; Other Cells % 1
[2021-07-28 08:56] LABS: Ovalocytes 2+; Poikilocytes 2+
[2021-07-28 09:07] VITALS: BP 148/64; PULSE 52; RESP 18; TEMP 36.2; O2SAT 99
[2021-07-28 09:22] VITALS: BP 144/64; PULSE 48; RESP 18; TEMP 36.9; O2SAT 98
[2021-07-28 09:42] VITALS: BP 158/77; PULSE 48; RESP 18; TEMP 36.9; O2SAT 99
[2021-07-28 09:50] VITALS: BP 154/66; PULSE 46; RESP 18; TEMP 36.9; O2SAT 98
[2021-07-28 10:52] VITALS: BP 152/68; PULSE 48; RESP 18; TEMP 36.5; O2SAT 99
[2021-08-11] MEDS: Normal Saline Flush 10 ML SYR IVP (08:37)
[2021-08-11 08:49] LABS: HCT 23.1 % (40.0-50.0); HGB 7.5 g/dL (13.5-17.5); MCH 30.4 pg (27.0-33.0); MCHC 32.5 % (32.0-36.0); MCV 93.5 fL (80-95); Nucleated RBC 0 %; Platelet Count 107 10^3/uL (130-400); RBC 2.47 10^6/uL (4.36-5.78); RDW 18.1 % (11.8-14.1); RDW-SD 59.2 fL
[2021-08-11 08:57] LABS: WBC 1.11 10^3/uL (4.4-10.8)
[2021-08-11 09:05] LABS: ALT 32 U/L (16-63); AST 33 U/L (15-37); Albumin 3.3 g/dL (3.4-5.0); Alkaline Phosphatase 64 U/L (46-116); BUN 24 mg/dL (7-18); Bilirubin, Total 0.4 mg/dL (0.2-1.0); CREATININE 0.9 mg/dL (0.70-1.30); Chloride 108 mmol/L (98-107); Glucose 150 mg/dL (74-106); Potassium 4.9 mmol/L (3.5-5.1); Sodium 141 mmol/L (136-145); Total Protein 6.1 g/dL (6.4-8.2)
[2021-08-11 09:15] LABS: Absolute Basophil Count 0.07 10^3/uL (0.0-0.2); Absolute Eosinophil Count 0.16 10^3/uL (0.0-0.7); Absolute Lymphocyte Count 0.71 10^3/uL (1.2-3.4); Absolute Monocyte Count 0.04 10^3/uL (0.1-0.8); Absolute Neutrophil Count 0.13 10^3/uL (1.2-6.7)
[2021-08-11 09:16] LABS: Diff Comment Manual Differential; Poikilocytes 2+
[2021-08-11 09:17] VITALS: BP 135/62; PULSE 50; RESP 18; TEMP 36.6; O2SAT 100
[2021-08-11 10:30] VITALS: BP 135/63; PULSE 54; RESP 18; TEMP 36.7; O2SAT 99
[2021-08-11 10:45] VITALS: BP 155/52; PULSE 51; RESP 18; TEMP 36.7; O2SAT 99
[2021-08-11 11:15] VITALS: BP 166/70; PULSE 55; RESP 18; TEMP 36.7; O2SAT 99
[2021-08-11 12:15] VITALS: BP 169/66; PULSE 54; RESP 16; TEMP 36.9; O2SAT 99
== END 2021-08-21 23:59 | disposition home or self-care (01) ==
LOC: INF 09:00
PROVIDERS: PCP Family Medicine; Visit Provider Internal Medicine Hematology & Oncology
DX: D75.81 Myelofibrosis (principal); D64.9 Anemia, unspecified
CPT/HCPCS: 36415; 36430; 80053; 86850; 86900; 86901; 86920; 85025; P9016

== ENCOUNTER 2021-09-13 09:00 | Outpatient (RCR) | payer MEDICARE, OTHER, SELFPAY ==
[2021-08-22 00:13] VITALS: BP 169/66; PULSE 54; RESP 16; TEMP 36.9
[2021-09-13] VITALS (13 sets, daily range): BP systolic 132–156; BP diastolic 56–69; PULSE 52–58; RESP 16–20; TEMP 36.4–37.3; O2SAT 18–99
[2021-09-13 08:46] LABS: Abs Immature Grans 0.01 10^3/uL (0.0-0.06); HCT 21.1 % (40.0-50.0); MCH 30.2 pg (27.0-33.0); MCHC 32.2 % (32.0-36.0); MCV 93.8 fL (80-95); Nucleated RBC 0 %; RBC 2.25 10^6/uL (4.36-5.78); RDW 18.6 % (11.8-14.1); RDW-SD 60.6 fL
[2021-09-13 08:59] LABS: ALT 27 U/L (16-63); AST 21 U/L (15-37); Albumin 3.3 g/dL (3.4-5.0); Alkaline Phosphatase 67 U/L (46-116); Anion Gap 6.4 mmol/L (3-11); BUN 28 mg/dL (7-18); Bilirubin, Total 0.4 mg/dL (0.2-1.0); CO2 25.6 mmol/L (21.0-32.0); Calcium 7.6 mg/dL (8.5-10.1); Chloride 109 mmol/L (98-107); Glucose 155 mg/dL (74-106); HGB 6.8 g/dL (13.5-17.5); Potassium 4.1 mmol/L (3.5-5.1); Sodium 141 mmol/L (136-145); Total Protein 5.8 g/dL (6.4-8.2); WBC 1.24 10^3/uL (4.4-10.8)
[2021-09-13] MEDS: Normal Saline Flush 10 ML SYR IVP (09:13)
[2021-09-13 09:20] LABS: Absolute Basophil Count 0.05 10^3/uL (0.0-0.2); Absolute Lymphocyte Count 0.63 10^3/uL (1.2-3.4); Absolute Neutrophil Count 0.36 10^3/uL (1.2-6.7); Atypical Lymphocytes % 1
[2021-09-13 09:21] LABS: Diff Comment Manual Differential; Hypochromasia 3+; Polychromasia Present
[2021-09-13 09:22] LABS: Poikilocytes 2+
[2021-09-13 09:23] LABS: Platelet Count 120 10^3/uL (130-400)
== END 2021-09-20 23:59 | disposition home or self-care (01) ==
LOC: INF 09:00
PROVIDERS: PCP Family Medicine; Visit Provider Internal Medicine Hematology & Oncology
DX: D46.9 Myelodysplastic syndrome, unspecified (principal); D75.81 Myelofibrosis
CPT/HCPCS: 36415; 36430; 80053; 86850; 86900; 86901; 86920; 86945; 85025; P9016

== ENCOUNTER 2021-10-11 09:00 | Outpatient (RCR) | payer MEDICARE, OTHER, SELFPAY ==
[2021-09-21 00:18] VITALS: BP 156/69; PULSE 57; RESP 17; TEMP 36.9
[2021-09-27 08:28] LABS: Abs Immature Grans 0.01 10^3/uL (0.0-0.06); Absolute Basophil Count 0.02 10^3/uL (0.0-0.2); Absolute Monocyte Count 0.09 10^3/uL (0.1-0.8); HCT 24.1 % (40.0-50.0); HGB 7.8 g/dL (13.5-17.5); MCH 30.4 pg (27.0-33.0); MCHC 32.4 % (32.0-36.0); MCV 93.8 fL (80-95); Nucleated RBC 0 %; RBC 2.57 10^6/uL (4.36-5.78); RDW 17.6 % (11.8-14.1); RDW-SD 59.9 fL
[2021-09-27 08:39] LABS: ALT 26 U/L (16-63); AST 15 U/L (15-37); Albumin 3.2 g/dL (3.4-5.0); Alkaline Phosphatase 66 U/L (46-116); Anion Gap 4.8 mmol/L (3-11); BUN 23 mg/dL (7-18); Bilirubin, Total 0.5 mg/dL (0.2-1.0); CO2 27.2 mmol/L (21.0-32.0); CREATININE 0.9 mg/dL (0.70-1.30); Calcium 7.8 mg/dL (8.5-10.1); Chloride 110 mmol/L (98-107); Glucose 99 mg/dL (74-106); Potassium 4.2 mmol/L (3.5-5.1); Sodium 142 mmol/L (136-145); Total Protein 5.8 g/dL (6.4-8.2)
[2021-09-27 08:50] LABS: Absolute Lymphocyte Count 0.59 10^3/uL (1.2-3.4); Bands % 1
[2021-09-27 08:51] LABS: Absolute Eosinophil Count 0.11 10^3/uL (0.0-0.7)
[2021-09-27 08:54] LABS: Anisocytosis 2+; Diff Comment Manual Differential; Polychromasia Present
[2021-09-27 08:55] LABS: Platelet Count 105 10^3/uL (130-400); Poikilocytes 2+
[2021-09-27 09:04] LABS: WBC 1.01 10^3/uL (4.4-10.8)
[2021-09-27 09:29] VITALS: BP 136/56; PULSE 51; RESP 18; TEMP 37.1; O2SAT 98
[2021-09-27 09:44] VITALS: BP 146/60; PULSE 50; RESP 18; TEMP 36.6; O2SAT 99
[2021-09-27 10:14] VITALS: BP 160/65; PULSE 49; RESP 18; TEMP 37.1; O2SAT 99
[2021-09-27 10:50] VITALS: BP 179/66; PULSE 50; RESP 16; TEMP 36.8; O2SAT 99
[2021-09-27 11:05] VITALS: BP 159/68; PULSE 52; RESP 18; TEMP 37.1; O2SAT 97
[2021-10-11 08:07] LABS: Absolute Basophil Count 0.04 10^3/uL (0.0-0.2); Absolute Lymphocyte Count 0.59 10^3/uL (1.2-3.4); Basophils % 3.4; HCT 23.2 % (40.0-50.0); HGB 7.4 g/dL (13.5-17.5); Lymphocytes % 49.6; MCHC 31.9 % (32.0-36.0); MCV 93.9 fL (80-95); Monocytes % 8.4; Neutrophils % 38.6; Nucleated RBC 0 %; RBC 2.47 10^6/uL (4.36-5.78); RDW 17.7 % (11.8-14.1); RDW-SD 59.4 fL
[2021-10-11 08:21] LABS: ALT 23 U/L (16-63); AST 16 U/L (15-37); Albumin 3.1 g/dL (3.4-5.0); Alkaline Phosphatase 66 U/L (46-116); Anion Gap 7.2 mmol/L (3-11); BUN 21 mg/dL (7-18); Bilirubin, Total 0.4 mg/dL (0.2-1.0); CO2 24.8 mmol/L (21.0-32.0); Calcium 7.9 mg/dL (8.5-10.1); Chloride 109 mmol/L (98-107); Glucose 185 mg/dL (74-106); Potassium 4.2 mmol/L (3.5-5.1); Sodium 141 mmol/L (136-145); Total Protein 5.7 g/dL (6.4-8.2)
[2021-10-11 08:42] LABS: Diff Comment Agrees w/ Instrument; Hypochromasia 2+; Platelet Count 116 10^3/uL (130-400); Polychromasia Present
[2021-10-11 08:43] LABS: Poikilocytes 2+
[2021-10-11 08:51] LABS: WBC 1.19 10^3/uL (4.4-10.8)
[2021-10-11 08:52] LABS: Absolute Neutrophil Count 0.46 10^3/uL (1.2-6.7)
[2021-10-11 08:53] VITALS: BP 151/66; PULSE 51; RESP 17; TEMP 36.8; O2SAT 99
[2021-10-11 08:56] VITALS: BP 151/66; PULSE 51; RESP 17; TEMP 36.8; O2SAT 99
[2021-10-11 09:11] VITALS: BP 147/54; PULSE 52; RESP 17; TEMP 36.8; O2SAT 99
[2021-10-11 09:45] VITALS: BP 149/50; PULSE 50; RESP 17; TEMP 36.8; O2SAT 100
[2021-10-11 10:25] VITALS: BP 148/50; PULSE 52; RESP 17; TEMP 36.7; O2SAT 100
[2021-10-11] MEDS: Normal Saline Flush 10 ML SYR IVP (12:26)
== END 2021-10-21 23:59 | disposition home or self-care (01) ==
LOC: INF 09:00
PROVIDERS: PCP Family Medicine; Visit Provider Internal Medicine Hematology & Oncology
DX: D75.81 Myelofibrosis (principal)
CPT/HCPCS: 36415; 36430; 80053; 86850; 86900; 86901; 86920; 85025; P9016

== ENCOUNTER 2021-10-25 08:30 | Outpatient (RCR) | payer MEDICARE, OTHER, SELFPAY ==
[2021-10-22 00:07] VITALS: BP 148/50; PULSE 52; RESP 17; TEMP 36.7
[2021-10-25] VITALS (9 sets, daily range): BP systolic 136–168; BP diastolic 62–71; PULSE 51–54; RESP 17–18; TEMP 36–36.8; O2SAT 96–99
[2021-10-25] MEDS: Normal Saline Flush 10 ML SYR IVP (08:00)
[2021-10-25 08:09] LABS: HCT 22.1 % (40.0-50.0); MCH 29.9 pg (27.0-33.0); MCHC 31.7 % (32.0-36.0); MCV 94.4 fL (80-95); RBC 2.34 10^6/uL (4.36-5.78); RDW 17.6 % (11.8-14.1); RDW-SD 58.8 fL
[2021-10-25 08:28] LABS: Absolute Basophil Count 0.05 10^3/uL (0.0-0.2); Absolute Eosinophil Count 0.12 10^3/uL (0.0-0.7); Absolute Lymphocyte Count 0.79 10^3/uL (1.2-3.4); Absolute Monocyte Count 0.01 10^3/uL (0.1-0.8); Bands % 1; Diff Comment Manual Differential; Nucleated RBC 0 %
[2021-10-25 08:29] LABS: Platelet Count 107 10^3/uL (130-400)
[2021-10-25 08:31] LABS: Absolute Neutrophil Count 0.21 10^3/uL (1.2-6.7); WBC 1.18 10^3/uL (4.4-10.8)
[2021-10-25 08:32] LABS: Anisocytosis 2+; Poikilocytes 2+; Polychromasia Present
[2021-10-25 08:37] LABS: ALT 32 U/L (16-63); AST 21 U/L (15-37); Albumin 3.3 g/dL (3.4-5.0); Alkaline Phosphatase 69 U/L (46-116); Anion Gap 5.7 mmol/L (3-11); BUN 19 mg/dL (7-18); Bilirubin, Total 0.4 mg/dL (0.2-1.0); CO2 27.3 mmol/L (21.0-32.0); Calcium 7.9 mg/dL (8.5-10.1); Chloride 108 mmol/L (98-107); Glucose 183 mg/dL (74-106); Potassium 4.1 mmol/L (3.5-5.1); Sodium 141 mmol/L (136-145)
== END 2021-11-21 23:59 | disposition home or self-care (01) ==
LOC: INF 08:30
PROVIDERS: PCP Family Medicine; Visit Provider Internal Medicine Hematology & Oncology
DX: D75.81 Myelofibrosis (principal); D46.Z Other myelodysplastic syndromes
CPT/HCPCS: 36415; 36430; 80053; 86850; 86900; 86901; 86920; 85025; P9016

== ENCOUNTER 2021-12-06 09:00 | Outpatient (RCR) | payer MEDICARE, OTHER, SELFPAY ==
[2021-11-22] VITALS (10 sets, daily range): BP systolic 133–180; BP diastolic 65–75; PULSE 51–65; RESP 16–18; TEMP 36.4–36.9; O2SAT 97–99
[2021-11-22 08:11] LABS: Abs Immature Grans 0.06 10^3/uL (0.0-0.06); MCH 30.3 pg (27.0-33.0); MCHC 31.5 % (32.0-36.0); MCV 96.2 fL (80-95); RBC 2.11 10^6/uL (4.36-5.78); RDW 18.3 % (11.8-14.1); RDW-SD 62.5 fL
[2021-11-22 08:28] LABS: ALT 29 U/L (16-63); AST 17 U/L (15-37); Albumin 3.1 g/dL (3.4-5.0); Alkaline Phosphatase 71 U/L (46-116); Anion Gap 6.8 mmol/L (3-11); BUN 19 mg/dL (7-18); Bilirubin, Total 0.4 mg/dL (0.2-1.0); CO2 26.2 mmol/L (21.0-32.0); Calcium 7.7 mg/dL (8.5-10.1); Chloride 106 mmol/L (98-107); Glucose 203 mg/dL (74-106); Sodium 139 mmol/L (136-145); Total Protein 5.7 g/dL (6.4-8.2)
[2021-11-22 08:38] LABS: WBC 1.13 10^3/uL (4.4-10.8)
[2021-11-22 08:39] LABS: HGB 6.4 g/dL (13.5-17.5)
[2021-11-22 08:40] LABS: HCT 20.3 % (40.0-50.0); Platelet Count 102 10^3/uL (130-400)
[2021-11-22 08:41] LABS: Absolute Basophil Count 0.05 10^3/uL (0.0-0.2); Absolute Eosinophil Count 0.09 10^3/uL (0.0-0.7); Absolute Lymphocyte Count 0.53 10^3/uL (1.2-3.4); Absolute Monocyte Count 0.09 10^3/uL (0.1-0.8); Atypical Lymphocytes % 1
[2021-11-22 08:42] LABS: Nucleated RBC 0 %
[2021-11-22 08:43] LABS: Absolute Neutrophil Count 0.37 10^3/uL (1.2-6.7); Diff Comment Manual Differential; Hypochromasia 2+
[2021-11-22 08:44] LABS: Poikilocytes 2+; Polychromasia Present
[2021-12-06 07:59] LABS: HCT 24.4 % (40.0-50.0); HGB 7.8 g/dL (13.5-17.5); MCH 30.1 pg (27.0-33.0); MCV 94.2 fL (80-95); MPV 12.4 fL (8.0-11.0); Nucleated RBC 0 %; Platelet Count 126 10^3/uL (130-400); RBC 2.59 10^6/uL (4.36-5.78); RDW 16.4 % (11.8-14.1)
[2021-12-06 08:13] LABS: ALT 32 U/L (16-63); AST 16 U/L (15-37); Albumin 3.1 g/dL (3.4-5.0); Alkaline Phosphatase 70 U/L (46-116); Anion Gap 7.1 mmol/L (3-11); BUN 23 mg/dL (7-18); Bilirubin, Total 0.5 mg/dL (0.2-1.0); CO2 24.9 mmol/L (21.0-32.0); Calcium 7.9 mg/dL (8.5-10.1); Chloride 106 mmol/L (98-107); Glucose 238 mg/dL (74-106); Potassium 4.6 mmol/L (3.5-5.1); Sodium 138 mmol/L (136-145)
[2021-12-06 08:31] LABS: Absolute Basophil Count 0.02 10^3/uL (0.0-0.2); Absolute Eosinophil Count 0.17 10^3/uL (0.0-0.7); Absolute Lymphocyte Count 0.62 10^3/uL (1.2-3.4); Absolute Monocyte Count 0.01 10^3/uL (0.1-0.8); Atypical Lymphocytes % 5; Bands % 3
[2021-12-06 08:35] LABS: WBC 1.21 10^3/uL (4.4-10.8)
[2021-12-06 08:36] LABS: Absolute Neutrophil Count 0.39 10^3/uL (1.2-6.7); Diff Comment Manual Differential; RBC Morphology Normal
[2021-12-06 08:37] VITALS: BP 159/70; PULSE 56; RESP 17; TEMP 36.6; O2SAT 98
[2021-12-06 09:24] VITALS: BP 159/70; PULSE 56; RESP 17; TEMP 36.6; O2SAT 98
[2021-12-06 09:39] VITALS: BP 152/68; PULSE 54; RESP 16; TEMP 36.7; O2SAT 98
[2021-12-06 09:55] VITALS: BP 147/68; PULSE 60; RESP 17; TEMP 36.6; O2SAT 97
[2021-12-06] MEDS: Normal Saline Flush 10 ML SYR IVP (10:00)
[2021-12-06 10:30] VITALS: BP 166/71; PULSE 56; RESP 17; TEMP 36.6; O2SAT 100
[2021-12-06 10:57] VITALS: BP 159/76; PULSE 52; RESP 17; TEMP 36.6; O2SAT 98
== END 2021-12-19 23:59 | disposition home or self-care (01) ==
LOC: INF 09:00
PROVIDERS: PCP Family Medicine; Visit Provider Internal Medicine Hematology & Oncology
DX: D75.81 Myelofibrosis (principal)
CPT/HCPCS: 36415; 36430; 80053; 86850; 86900; 86901; 86920; 85025; P9016

== ENCOUNTER 2021-12-20 01:38 | Outpatient (RCR) | payer MEDICARE, OTHER, SELFPAY ==
[2021-12-20 00:11] VITALS: BP 159/76; PULSE 52; RESP 17; TEMP 36.6
[2021-12-20 07:49] LABS: HCT 23.3 % (40.0-50.0); HGB 7.6 g/dL (13.5-17.5); MCH 31.1 pg (27.0-33.0); MCHC 32.6 % (32.0-36.0); MCV 95.5 fL (80-95); MPV 13.3 fL (8.0-11.0); Nucleated RBC 0 %; Platelet Count 142 10^3/uL (130-400); RBC 2.44 10^6/uL (4.36-5.78); RDW 16.8 % (11.8-14.1); RDW-SD 58.1 fL
[2021-12-20] MEDS: Normal Saline Flush 10 ML SYR IVP (07:50)
[2021-12-20 08:04] LABS: ALT 26 U/L (16-63); AST 18 U/L (15-37); Albumin 3.2 g/dL (3.4-5.0); Alkaline Phosphatase 78 U/L (46-116); Anion Gap 7.1 mmol/L (3-11); BUN 21 mg/dL (7-18); Bilirubin, Total 0.5 mg/dL (0.2-1.0); CO2 24.9 mmol/L (21.0-32.0); CREATININE 1.2 mg/dL (0.70-1.30); Chloride 105 mmol/L (98-107); Estimated GFR 58.56 (mL/min/1.73m2); Glucose 270 mg/dL (74-106); Potassium 4.7 mmol/L (3.5-5.1); Sodium 137 mmol/L (136-145); Total Protein 6.1 g/dL (6.4-8.2)
[2021-12-20 08:09] LABS: Absolute Neutrophil Count 0.65 10^3/uL (1.2-6.7)
[2021-12-20 08:10] LABS: Absolute Basophil Count 0.01 10^3/uL (0.0-0.2); Absolute Eosinophil Count 0.18 10^3/uL (0.0-0.7); Absolute Lymphocyte Count 0.59 10^3/uL (1.2-3.4); Absolute Monocyte Count 0.04 10^3/uL (0.1-0.8); Anisocytosis 1+; Diff Comment Manual Differential
[2021-12-20 08:25] LABS: WBC 1.47 10^3/uL (4.4-10.8)
[2021-12-20 08:46] VITALS: BP 146/57; PULSE 57; RESP 20; TEMP 36.6; O2SAT 97
[2021-12-20 09:01] VITALS: BP 147/60; PULSE 60; RESP 20; TEMP 36.7; O2SAT 97
[2021-12-20 09:22] VITALS: BP 155/62; PULSE 54; RESP 20; TEMP 36.7; O2SAT 96
[2021-12-20 09:31] VITALS: BP 126/68; PULSE 52; RESP 20; TEMP 36.6; O2SAT 96
[2021-12-20 10:43] VITALS: BP 152/52; PULSE 54; RESP 20; TEMP 36.7; O2SAT 98
== END 2022-01-19 23:59 | disposition home or self-care (01) ==
LOC: INF 01:38
PROVIDERS: PCP Family Medicine; Visit Provider Internal Medicine Hematology & Oncology
DX: D75.81 Myelofibrosis (principal)
CPT/HCPCS: 36415; 36430; 80053; 86850; 86900; 86901; 86920; 85025; P9016

== ENCOUNTER 2022-01-17 09:00 | Outpatient (RCR) | payer MEDICARE, OTHER, SELFPAY ==
[2022-01-04 07:45] VITALS: BP 151/62; PULSE 52; RESP 17; TEMP 36.7; O2SAT 98
[2022-01-04 08:00] LABS: HCT 22.6 % (40.0-50.0); HGB 7.2 g/dL (13.5-17.5); MCHC 31.9 % (32.0-36.0); MCV 94.2 fL (80-95); MPV 13.2 fL (8.0-11.0); Nucleated RBC 0 %; RDW 17.7 % (11.8-14.1); RDW-SD 59.7 fL
[2022-01-04 08:24] LABS: ALT 26 U/L (16-63); AST 16 U/L (15-37); Albumin 3.2 g/dL (3.4-5.0); Alkaline Phosphatase 89 U/L (46-116); Anion Gap 5.5 mmol/L (3-11); BUN 21 mg/dL (7-18); Bilirubin, Total 0.6 mg/dL (0.2-1.0); CO2 26.5 mmol/L (21.0-32.0); Calcium 7.9 mg/dL (8.5-10.1); Chloride 108 mmol/L (98-107); Glucose 208 mg/dL (74-106); Potassium 4.3 mmol/L (3.5-5.1); Sodium 140 mmol/L (136-145); Total Protein 6.4 g/dL (6.4-8.2)
[2022-01-04 08:29] LABS: Diff Comment Manual Differential
[2022-01-04 08:30] LABS: Absolute Basophil Count 0.08 10^3/uL (0.0-0.2); Absolute Eosinophil Count 0.14 10^3/uL (0.0-0.7); Absolute Lymphocyte Count 0.55 10^3/uL (1.2-3.4); Absolute Monocyte Count 0.01 10^3/uL (0.1-0.8); Anisocytosis 1+; Hypochromasia 1+
[2022-01-04 08:31] LABS: Poikilocytes 2+; Polychromasia Present
[2022-01-04] MEDS: Normal Saline Flush 10 ML SYR IVP (08:31)
[2022-01-04 08:32] LABS: Platelet Count 124 10^3/uL (130-400)
[2022-01-04 08:34] LABS: WBC 1.29 10^3/uL (4.4-10.8)
[2022-01-04 08:51] VITALS: BP 151/62; PULSE 52; RESP 17; TEMP 36.7; O2SAT 98
[2022-01-04 09:06] VITALS: BP 138/56; PULSE 53; RESP 17; TEMP 36.7; O2SAT 96
[2022-01-04 09:36] VITALS: BP 139/66; PULSE 53; RESP 17; TEMP 36.6; O2SAT 99
[2022-01-04 10:23] VITALS: BP 150/56; PULSE 51; RESP 17; TEMP 36.6; O2SAT 99
[2022-01-17] MEDS: Normal Saline Flush 10 ML SYR IVP (07:53)
[2022-01-17 07:57] LABS: HCT 22.7 % (40.0-50.0); HGB 7.1 g/dL (13.5-17.5); MCH 29.8 pg (27.0-33.0); MCHC 31.3 % (32.0-36.0); MCV 95.4 fL (80-95); MPV 12.5 fL (8.0-11.0); Nucleated RBC 0 %; Platelet Count 131 10^3/uL (130-400); RBC 2.38 10^6/uL (4.36-5.78); RDW 17.8 % (11.8-14.1); RDW-SD 60.4 fL
[2022-01-17 08:11] LABS: ALT 27 U/L (16-63); AST 16 U/L (15-37); Albumin 3.1 g/dL (3.4-5.0); Alkaline Phosphatase 90 U/L (46-116); Anion Gap 6.9 mmol/L (3-11); BUN 24 mg/dL (7-18); Bilirubin, Total 0.5 mg/dL (0.2-1.0); CO2 26.1 mmol/L (21.0-32.0); CREATININE 1.1 mg/dL (0.70-1.30); Calcium 7.9 mg/dL (8.5-10.1); Chloride 107 mmol/L (98-107); Glucose 238 mg/dL (74-106); Potassium 4.9 mmol/L (3.5-5.1); Sodium 140 mmol/L (136-145); Total Protein 6.3 g/dL (6.4-8.2)
[2022-01-17 08:15] LABS: Absolute Neutrophil Count 0.55 10^3/uL (1.2-6.7); Atypical Lymphocytes % 1
[2022-01-17 08:16] LABS: Absolute Basophil Count 0.06 10^3/uL (0.0-0.2); Absolute Eosinophil Count 0.14 10^3/uL (0.0-0.7); Absolute Monocyte Count 0.06 10^3/uL (0.1-0.8); Diff Comment Manual Differential; RBC Morphology Normal
[2022-01-17 08:45] VITALS: BP 154/74; PULSE 56; RESP 17; TEMP 36.8; O2SAT 100
[2022-01-17 09:03] VITALS: BP 167/76; PULSE 58; RESP 17; TEMP 36.7; O2SAT 99
[2022-01-17 09:20] VITALS: BP 149/60; PULSE 54; RESP 16; TEMP 36.8; O2SAT 98
[2022-01-17 09:30] VITALS: BP 146/66; PULSE 54; RESP 16; TEMP 36.6; O2SAT 97
[2022-01-17 10:15] VITALS: BP 166/66; PULSE 55; RESP 16; TEMP 36.8; O2SAT 99
== END 2022-01-19 23:59 | disposition home or self-care (01) ==
LOC: INF 09:00
PROVIDERS: PCP Family Medicine; Visit Provider Internal Medicine Hematology & Oncology
DX: D75.81 Myelofibrosis (principal)
CPT/HCPCS: 36415; 36430; 80053; 86850; 86900; 86901; 86920; 85025; P9016

== ENCOUNTER 2022-02-14 08:30 | Outpatient (RCR) | payer MEDICARE, OTHER, SELFPAY ==
[2022-01-20 00:17] VITALS: BP 166/66; PULSE 55; RESP 16; TEMP 36.8
[2022-01-31] VITALS (11 sets, daily range): BP systolic 134–162; BP diastolic 54–76; PULSE 49–59; RESP 16–20; TEMP 36.4–36.8; O2SAT 97–98
[2022-01-31 08:00] LABS: HCT 22.3 % (40.0-50.0); MCH 30.2 pg (27.0-33.0); MCHC 31.4 % (32.0-36.0); MCV 96.1 fL (80-95); Nucleated RBC 0 %; Platelet Count 111 10^3/uL (130-400); RBC 2.32 10^6/uL (4.36-5.78); RDW 17.9 % (11.8-14.1); RDW-SD 60.9 fL
[2022-01-31 08:06] LABS: ALT 32 U/L (16-63); AST 20 U/L (15-37); Albumin 3.2 g/dL (3.4-5.0); Alkaline Phosphatase 80 U/L (46-116); Anion Gap 6.2 mmol/L (3-11); BUN 28 mg/dL (7-18); Bilirubin, Total 0.4 mg/dL (0.2-1.0); CO2 25.8 mmol/L (21.0-32.0); CREATININE 1.2 mg/dL (0.70-1.30); Calcium 7.9 mg/dL (8.5-10.1); Chloride 105 mmol/L (98-107); Estimated GFR 58.56 (mL/min/1.73m2); Glucose 275 mg/dL (74-106); Potassium 4.3 mmol/L (3.5-5.1); Sodium 137 mmol/L (136-145); Total Protein 6.1 g/dL (6.4-8.2)
[2022-01-31 08:15] LABS: Absolute Basophil Count 0.04 10^3/uL (0.0-0.2); Absolute Eosinophil Count 0.08 10^3/uL (0.0-0.7); Absolute Monocyte Count 0.03 10^3/uL (0.1-0.8); Absolute Neutrophil Count 0.52 10^3/uL (1.2-6.7); Atypical Lymphocytes % 2
[2022-01-31 08:16] LABS: Diff Comment Manual Differential; Other Cells % 3; RBC Morphology Normal
[2022-02-14] MEDS: Normal Saline Flush 10 ML SYR IVP (07:53)
[2022-02-14 08:17] LABS: HCT 22.9 % (40.0-50.0); HGB 7.4 g/dL (13.5-17.5); MCH 30.8 pg (27.0-33.0); MCHC 32.3 % (32.0-36.0); MCV 95.4 fL (80-95); MPV 12.2 fL (8.0-11.0); RDW 17.3 % (11.8-14.1); RDW-SD 60.2 fL
[2022-02-14 08:19] LABS: Bilirubin Negative (Negative); Blood Large (Negative); Clarity Clear (Clear); Glucose Negative (Negative); Ketones Negative (Negative); Leukocyte Esterase Negative (Negative); Nitrite Negative (Negative); Specific Gravity 1.015 (1.005-1.025); Urobilinogen 0.2 EU/dL (Up TO 0.2)
[2022-02-14 08:31] LABS: Epithelial Cells Rare HPF (Negative); RBC 20-50 HPF (0-2); WBC 0-2 HPF (0-5)
[2022-02-14 08:32] LABS: ALT 37 U/L (16-63); AST 22 U/L (15-37); Albumin 3.2 g/dL (3.4-5.0); Alkaline Phosphatase 73 U/L (46-116); Anion Gap 4.1 mmol/L (3-11); BUN 24 mg/dL (7-18); Bacteria Few HPF (Negative); Bilirubin, Total 0.4 mg/dL (0.2-1.0); C & S Indicated? No; CO2 26.9 mmol/L (21.0-32.0); Calcium 7.6 mg/dL (8.5-10.1); Casts Negative LPF (Negative); Chloride 107 mmol/L (98-107); Crystals Negative HPF (Negative); Glucose 144 mg/dL (74-106); Mucus Trace (Negative); Other Cells Rare Renal (Negative); Potassium 4.6 mmol/L (3.5-5.1); Sodium 138 mmol/L (136-145); Total Protein 5.8 g/dL (6.4-8.2)
[2022-02-14 08:55] LABS: WBC 1.23 10^3/uL (4.4-10.8)
[2022-02-14 09:07] LABS: Absolute Lymphocyte Count 0.66 10^3/uL (1.2-3.4); Absolute Neutrophil Count 0.46 10^3/uL (1.2-6.7); Atypical Lymphocytes % 0; Bands % 0
[2022-02-14 09:08] LABS: Absolute Basophil Count 0.01 10^3/uL (0.0-0.2); Absolute Eosinophil Count 0.06 10^3/uL (0.0-0.7); Absolute Monocyte Count 0.04 10^3/uL (0.1-0.8); Diff Comment Manual Differential; RBC Morphology Normal
[2022-02-14 09:09] LABS: Platelet Count 99 10^3/uL (130-400)
[2022-02-14 10:03] VITALS: BP 148/60; PULSE 48; RESP 16; TEMP 36.5; O2SAT 98
[2022-02-14 10:18] VITALS: BP 153/61; PULSE 49; RESP 16; TEMP 36.1; O2SAT 95
[2022-02-14 10:48] VITALS: BP 157/68; PULSE 48; RESP 16; TEMP 36.4; O2SAT 98
[2022-02-14 11:48] VITALS: BP 153/62; PULSE 52; RESP 16; TEMP 36.2; O2SAT 98
[2022-02-14 11:57] VITALS: BP 153/62; PULSE 52; RESP 16; TEMP 36.2; O2SAT 98
== END 2022-02-18 23:59 | disposition home or self-care (01) ==
LOC: INF 08:30
PROVIDERS: PCP Family Medicine; Visit Provider Internal Medicine Hematology & Oncology
DX: D75.81 Myelofibrosis (principal)
CPT/HCPCS: 36415; 36430; 80053; 86850; 86900; 86901; 86920; 81003; 81015; 85025; P9016

== ENCOUNTER 2022-03-14 09:00 | Outpatient (RCR) | payer MEDICARE, OTHER, SELFPAY ==
[2022-02-19 00:16] VITALS: BP 153/62; PULSE 52; RESP 16; TEMP 36.2
[2022-02-28] MEDS: Normal Saline Flush 10 ML SYR IVP (07:46)
[2022-02-28 07:54] LABS: HCT 22.9 % (40.0-50.0); MCH 30.2 pg (27.0-33.0); MCHC 31.9 % (32.0-36.0); MCV 95 fL (80-95); RBC 2.42 10^6/uL (4.36-5.78); RDW 18.2 % (11.8-14.1); RDW-SD 61.8 fL
[2022-02-28 08:12] LABS: ALT 34 U/L (16-63); AST 27 U/L (15-37); Albumin 3.1 g/dL (3.4-5.0); Alkaline Phosphatase 69 U/L (46-116); Anion Gap 5.2 mmol/L (3-11); BUN 27 mg/dL (7-18); Bilirubin, Total 0.4 mg/dL (0.2-1.0); CO2 24.8 mmol/L (21.0-32.0); CREATININE 1.2 mg/dL (0.70-1.30); Calcium 7.9 mg/dL (8.5-10.1); Chloride 108 mmol/L (98-107); Estimated GFR 58.56 (mL/min/1.73m2); Glucose 177 mg/dL (74-106); Potassium 4.5 mmol/L (3.5-5.1); Sodium 138 mmol/L (136-145)
[2022-02-28 08:24] LABS: Absolute Lymphocyte Count 0.71 10^3/uL (1.2-3.4); Absolute Monocyte Count 0.04 10^3/uL (0.1-0.8); Atypical Lymphocytes % 2; Bands % 2
[2022-02-28 08:25] LABS: Absolute Basophil Count 0.01 10^3/uL (0.0-0.2); Absolute Eosinophil Count 0.09 10^3/uL (0.0-0.7); Anisocytosis 2+; Diff Comment Diff Reviewed
[2022-02-28 08:36] LABS: WBC 1.17 10^3/uL (4.4-10.8)
[2022-02-28 08:37] LABS: Absolute Neutrophil Count 0.32 10^3/uL (1.2-6.7)
[2022-02-28 08:38] LABS: HGB 7.3 g/dL (13.5-17.5); Platelet Count 107 10^3/uL (130-400)
[2022-02-28 08:56] VITALS: BP 148/63; PULSE 58; RESP 20; TEMP 36.2; O2SAT 96
[2022-02-28 09:10] VITALS: BP 145/89; PULSE 51; RESP 20; TEMP 35.9; O2SAT 98
[2022-02-28 09:25] VITALS: BP 165/68; PULSE 59; RESP 19; TEMP 36; O2SAT 97
[2022-02-28 09:55] VITALS: BP 166/69; PULSE 51; RESP 19; TEMP 35.8; O2SAT 98
[2022-02-28 10:35] VITALS: BP 166/69; PULSE 55; RESP 16; TEMP 36.9; O2SAT 97
[2022-03-14] MEDS: Normal Saline Flush 10 ML SYR IVP (07:30)
[2022-03-14 07:41] LABS: Absolute Basophil Count 0.02 10^3/uL (0.0-0.2); Absolute Monocyte Count 0.05 10^3/uL (0.1-0.8); HCT 23.4 % (40.0-50.0); HGB 7.4 g/dL (13.5-17.5); MCH 29.2 pg (27.0-33.0); MCHC 31.6 % (32.0-36.0); MCV 93 fL (80-95); Platelet Count 106 10^3/uL (130-400); RBC 2.53 10^6/uL (4.36-5.78); RDW 18.7 % (11.8-14.1); RDW-SD 63.5 fL
[2022-03-14 07:55] LABS: ALT 27 U/L (16-63); AST 18 U/L (15-37); Albumin 3.3 g/dL (3.4-5.0); Alkaline Phosphatase 65 U/L (46-116); BUN 26 mg/dL (7-18); Bilirubin, Total 0.5 mg/dL (0.2-1.0); CREATININE 1.3 mg/dL (0.70-1.30); Chloride 106 mmol/L (98-107); Estimated GFR 53.39 (mL/min/1.73m2); Glucose 270 mg/dL (74-106); Potassium 4.6 mmol/L (3.5-5.1); Sodium 140 mmol/L (136-145)
[2022-03-14 08:02] LABS: Absolute Eosinophil Count 0.05 10^3/uL (0.0-0.7); Absolute Lymphocyte Count 0.61 10^3/uL (1.2-3.4); Diff Comment Manual Differential; RBC Morphology Normal
[2022-03-14 08:16] LABS: Absolute Neutrophil Count 0.41 10^3/uL (1.2-6.7); WBC 1.13 10^3/uL (4.4-10.8)
[2022-03-14 08:30] VITALS: BP 149/66; PULSE 54; RESP 16; TEMP 36.2; O2SAT 99
[2022-03-14 08:45] VITALS: BP 129/55; PULSE 43; RESP 16; TEMP 36.3; O2SAT 95
[2022-03-14 09:15] VITALS: BP 162/62; PULSE 65; RESP 16; TEMP 36.3; O2SAT 99
[2022-03-14 10:15] VITALS: BP 154/62; PULSE 47; RESP 17; TEMP 36.4; O2SAT 99
== END 2022-03-21 23:59 | disposition home or self-care (01) ==
LOC: INF 09:00
PROVIDERS: PCP Family Medicine; Visit Provider Internal Medicine Hematology & Oncology
DX: D75.81 Myelofibrosis (principal)
CPT/HCPCS: 36415; 36430; 80053; 86850; 86900; 86901; 86920; 85025; P9016

== ENCOUNTER 2022-04-11 08:00 | Outpatient (RCR) | payer MEDICARE, OTHER, SELFPAY ==
[2022-03-22 00:15] VITALS: BP 154/62; PULSE 47; RESP 17; TEMP 36.4
[2022-03-28 07:35] LABS: HCT 22.2 % (40.0-50.0); HGB 7.1 g/dL (13.5-17.5); MCH 29.5 pg (27.0-33.0); MCV 92 fL (80-95); Nucleated RBC 1.5 % (0.0-0.3); RBC 2.41 10^6/uL (4.36-5.78); RDW 18.6 % (11.8-14.1); RDW-SD 61.8 fL
[2022-03-28 07:49] LABS: ALT 28 U/L (16-63); AST 18 U/L (15-37); Albumin 3.1 g/dL (3.4-5.0); Alkaline Phosphatase 64 U/L (46-116); Anion Gap 7.7 mmol/L (3-11); BUN 28 mg/dL (7-18); Bilirubin, Total 0.3 mg/dL (0.2-1.0); CO2 24.3 mmol/L (21.0-32.0); CREATININE 1.2 mg/dL (0.70-1.30); Calcium 8.1 mg/dL (8.5-10.1); Chloride 106 mmol/L (98-107); Estimated GFR 58.56 (mL/min/1.73m2); Glucose 254 mg/dL (74-106); Potassium 4.4 mmol/L (3.5-5.1); Sodium 138 mmol/L (136-145); Total Protein 5.8 g/dL (6.4-8.2)
[2022-03-28 08:17] VITALS: BP 137/64; PULSE 59; RESP 17; TEMP 36.7; O2SAT 99
[2022-03-28 08:17] LABS: Absolute Basophil Count 0.07 10^3/uL (0.0-0.2); Absolute Eosinophil Count 0.17 10^3/uL (0.0-0.7); Absolute Lymphocyte Count 0.58 10^3/uL (1.2-3.4); Absolute Monocyte Count 0.03 10^3/uL (0.1-0.8); Anisocytosis 2+; Bands % 6; Diff Comment Manual Differential; Myelocytes % 1; Other Cells % 1
[2022-03-28 08:18] LABS: Basophilic Stippling Present; Poikilocytes 1+; Polychromasia Present
[2022-03-28 08:21] LABS: Platelet Count 108 10^3/uL (130-400)
[2022-03-28 08:24] LABS: WBC 1.31 10^3/uL (4.4-10.8)
[2022-03-28 08:25] LABS: Absolute Neutrophil Count 0.45 10^3/uL (1.2-6.7)
[2022-03-28 08:35] VITALS: BP 136/55; PULSE 52; RESP 17; TEMP 36.5; O2SAT 99
[2022-03-28 08:50] VITALS: BP 133/54; PULSE 54; RESP 17; TEMP 36.5; O2SAT 98
[2022-03-28 09:02] VITALS: BP 142/65; PULSE 51; RESP 17; TEMP 36.7; O2SAT 98
[2022-03-28 09:54] VITALS: BP 143/62; PULSE 51; RESP 17; TEMP 36.6; O2SAT 99
[2022-03-28] MEDS: Normal Saline Flush 10 ML SYR IVP (10:09)
[2022-04-11] VITALS (10 sets, daily range): BP systolic 137–171; BP diastolic 59–75; PULSE 49–61; RESP 17–18; TEMP 36.3–36.6; O2SAT 97–99
[2022-04-11] MEDS: Normal Saline Flush 10 ML SYR IVP (07:22)
[2022-04-11 07:44] LABS: Abs Immature Grans 0.01 10^3/uL (0.0-0.06); MCH 30.1 pg (27.0-33.0); MCV 91 fL (80-95); Platelet Count 102 10^3/uL (130-400); RBC 2.29 10^6/uL (4.36-5.78); RDW 18.5 % (11.8-14.1); RDW-SD 61.1 fL
[2022-04-11 08:00] LABS: ALT 33 U/L (16-63); AST 19 U/L (15-37); Albumin 3.2 g/dL (3.4-5.0); Alkaline Phosphatase 71 U/L (46-116); Anion Gap 7.3 mmol/L (3-11); BUN 24 mg/dL (7-18); Bilirubin, Total 0.4 mg/dL (0.2-1.0); CO2 24.7 mmol/L (21.0-32.0); CREATININE 1.1 mg/dL (0.70-1.30); Calcium 8.1 mg/dL (8.5-10.1); Chloride 107 mmol/L (98-107); Glucose 206 mg/dL (74-106); Potassium 4.4 mmol/L (3.5-5.1); Sodium 139 mmol/L (136-145)
[2022-04-11 08:39] LABS: Absolute Basophil Count 0.01 10^3/uL (0.0-0.2); Absolute Eosinophil Count 0.04 10^3/uL (0.0-0.7); Absolute Lymphocyte Count 0.66 10^3/uL (1.2-3.4); Absolute Monocyte Count 0.12 10^3/uL (0.1-0.8); Diff Comment Manual Differential
[2022-04-11 08:42] LABS: Basophilic Stippling Present
[2022-04-11 08:43] LABS: Hypochromasia 2+
[2022-04-11 08:44] LABS: Poikilocytes 2+
[2022-04-11 08:47] LABS: WBC 1.17 10^3/uL (4.4-10.8)
[2022-04-11 08:48] LABS: HGB 6.9 g/dL (13.5-17.5)
[2022-04-11 08:49] LABS: Absolute Neutrophil Count 0.35 10^3/uL (1.2-6.7); HCT 20.9 % (40.0-50.0)
== END 2022-04-20 23:59 | disposition home or self-care (01) ==
LOC: INF 08:00
PROVIDERS: PCP Family Medicine; Visit Provider Internal Medicine Hematology & Oncology
DX: D75.81 Myelofibrosis (principal)
CPT/HCPCS: 36415; 36430; 80053; 86850; 86900; 86901; 86920; 85025; P9016

== ENCOUNTER 2022-05-09 08:00 | Outpatient (RCR) | payer MEDICARE, OTHER, SELFPAY ==
[2022-04-21 00:19] VITALS: BP 171/72; PULSE 61; RESP 18; TEMP 36.3
[2022-04-25] VITALS (9 sets, daily range): BP systolic 147–174; BP diastolic 62–93; PULSE 50–68; RESP 17–18; TEMP 36.2–36.6; O2SAT 97–100
[2022-04-25] MEDS: Normal Saline Flush 10 ML SYR IVP (07:41)
[2022-04-25 08:00] LABS: Abs Immature Grans 0.01 10^3/uL (0.0-0.06); HCT 21.6 % (40.0-50.0); MCH 29.5 pg (27.0-33.0); MCHC 32.4 % (32.0-36.0); MCV 91 fL (80-95); RBC 2.37 10^6/uL (4.36-5.78); RDW 18.3 % (11.8-14.1); RDW-SD 60.1 fL
[2022-04-25 08:16] LABS: ALT 32 U/L (16-63); AST 19 U/L (15-37); Albumin 3.2 g/dL (3.4-5.0); Alkaline Phosphatase 71 U/L (46-116); Anion Gap 6.5 mmol/L (3-11); BUN 24 mg/dL (7-18); Bilirubin, Total 0.4 mg/dL (0.2-1.0); CO2 26.5 mmol/L (21.0-32.0); CREATININE 0.9 mg/dL (0.70-1.30); Calcium 8.1 mg/dL (8.5-10.1); Chloride 105 mmol/L (98-107); Glucose 223 mg/dL (74-106); Potassium 4.3 mmol/L (3.5-5.1); Sodium 138 mmol/L (136-145); Total Protein 5.9 g/dL (6.4-8.2)
[2022-04-25 08:37] LABS: Anisocytosis 1+; Basophilic Stippling Present; Diff Comment Manual Differential; Platelet Count 109 10^3/uL (130-400); Poikilocytes 2+; Polychromasia Present
[2022-04-25 08:38] LABS: Absolute Basophil Count 0.03 10^3/uL (0.0-0.2); Absolute Eosinophil Count 0.17 10^3/uL (0.0-0.7); Absolute Lymphocyte Count 0.63 10^3/uL (1.2-3.4); Absolute Monocyte Count 0.03 10^3/uL (0.1-0.8); Atypical Lymphocytes % 3; Bands % 4; Metamyelocytes % 1
[2022-04-25 08:46] LABS: Absolute Neutrophil Count 0.25 10^3/uL (1.2-6.7); WBC 1.13 10^3/uL (4.4-10.8)
[2022-05-09 07:46] LABS: Abs Immature Grans 0.02 10^3/uL (0.0-0.06); HCT 23.7 % (40.0-50.0); HGB 7.7 g/dL (13.5-17.5); MCH 29.3 pg (27.0-33.0); MCHC 32.5 % (32.0-36.0); MCV 90 fL (80-95); RBC 2.63 10^6/uL (4.36-5.78); RDW 16.9 % (11.8-14.1)
[2022-05-09 08:01] LABS: ALT 37 U/L (16-63); AST 19 U/L (15-37); Albumin 3.1 g/dL (3.4-5.0); Alkaline Phosphatase 69 U/L (46-116); Anion Gap 6.3 mmol/L (3-11); BUN 22 mg/dL (7-18); Bilirubin, Total 0.3 mg/dL (0.2-1.0); CO2 26.7 mmol/L (21.0-32.0); CREATININE 1.1 mg/dL (0.70-1.30); Chloride 106 mmol/L (98-107); Glucose 222 mg/dL (74-106); Potassium 4.4 mmol/L (3.5-5.1); Sodium 139 mmol/L (136-145)
[2022-05-09 08:11] LABS: Absolute Basophil Count 0.12 10^3/uL (0.0-0.2); Absolute Eosinophil Count 0.16 10^3/uL (0.0-0.7); Absolute Lymphocyte Count 0.49 10^3/uL (1.2-3.4); Absolute Monocyte Count 0.02 10^3/uL (0.1-0.8); Platelet Count 97 10^3/uL (130-400)
[2022-05-09 08:12] LABS: Anisocytosis 1+; Diff Comment Manual Differential; Polychromasia Present
[2022-05-09 08:13] LABS: Poikilocytes 1+
[2022-05-09 08:28] LABS: WBC 1.11 10^3/uL (4.4-10.8)
[2022-05-09 08:29] LABS: Absolute Neutrophil Count 0.32 10^3/uL (1.2-6.7)
[2022-05-09 08:40] VITALS: BP 148/68; PULSE 60; RESP 16; TEMP 36.7; O2SAT 95
[2022-05-09 09:08] VITALS: BP 155/63; PULSE 57; RESP 16; TEMP 36.6; O2SAT 100
[2022-05-09 09:23] VITALS: BP 151/69; PULSE 51; RESP 16; TEMP 36.4; O2SAT 99
[2022-05-09 09:53] VITALS: BP 158/69; PULSE 52; RESP 16; TEMP 36.8; O2SAT 100
[2022-05-09 10:53] VITALS: BP 172/72; PULSE 53; RESP 16; TEMP 36.4; O2SAT 98
[2022-05-09] MEDS: Normal Saline Flush 10 ML SYR IVP (11:00)
== END 2022-05-21 23:59 | disposition home or self-care (01) ==
LOC: INF 08:00
PROVIDERS: PCP Family Medicine; Visit Provider Internal Medicine Hematology & Oncology
DX: D75.81 Myelofibrosis (principal)
CPT/HCPCS: 36415; 36430; 80053; 86850; 86900; 86901; 86920; 85025; P9016

== ENCOUNTER 2022-06-20 08:00 | Outpatient (RCR) | payer MEDICARE, OTHER, SELFPAY ==
[2022-05-22 00:09] VITALS: BP 172/72; PULSE 53; RESP 16; TEMP 36.4
[2022-05-23] MEDS: Normal Saline Flush 10 ML SYR IVP (07:35)
[2022-05-23 07:44] LABS: HCT 22.9 % (40.0-50.0); HGB 7.3 g/dL (13.5-17.5); MCH 29.1 pg (27.0-33.0); MCHC 31.9 % (32.0-36.0); MCV 91 fL (80-95); MPV 12.4 fL (8.0-11.0); Platelet Count 127 10^3/uL (130-400); RBC 2.51 10^6/uL (4.36-5.78); RDW 17.2 % (11.8-14.1); RDW-SD 55.5 fL
[2022-05-23 08:07] LABS: ALT 34 U/L (16-63); AST 21 U/L (15-37); Albumin 3.3 g/dL (3.4-5.0); Alkaline Phosphatase 75 U/L (46-116); Anion Gap 4.4 mmol/L (3-11); BUN 27 mg/dL (7-18); Bilirubin, Total 0.4 mg/dL (0.2-1.0); CO2 26.6 mmol/L (21.0-32.0); CREATININE 1.2 mg/dL (0.70-1.30); Calcium 8.1 mg/dL (8.5-10.1); Chloride 104 mmol/L (98-107); Glucose 221 mg/dL (74-106); Potassium 4.1 mmol/L (3.5-5.1); Sodium 135 mmol/L (136-145); Total Protein 6.2 g/dL (6.4-8.2)
[2022-05-23 08:32] LABS: Absolute Eosinophil Count 0.08 10^3/uL (0.0-0.7); Absolute Lymphocyte Count 0.82 10^3/uL (1.2-3.4); Absolute Monocyte Count 0.06 10^3/uL (0.1-0.8); Anisocytosis 1+; Diff Comment Manual Differential; Polychromasia Present
[2022-05-23 08:33] VITALS: BP 139/61; PULSE 55; RESP 18; TEMP 36.7; O2SAT 98
[2022-05-23 08:50] LABS: WBC 1.41 10^3/uL (4.4-10.8)
[2022-05-23 08:51] LABS: Absolute Neutrophil Count 0.45 10^3/uL (1.2-6.7)
[2022-05-23 08:55] VITALS: BP 141/64; BP 147/59; PULSE 52; PULSE 53; RESP 16; RESP 18; TEMP 36.6; TEMP 36.7; O2SAT 99
[2022-05-23 09:40] VITALS: BP 179/63; PULSE 51; RESP 18; TEMP 36.5; O2SAT 99
[2022-05-23 10:30] VITALS: BP 149/74; PULSE 51; RESP 16; TEMP 36.6; O2SAT 99
[2022-06-06 07:46] LABS: Absolute Eosinophil Count 0.08 10^3/uL (0.0-0.7); HCT 22.1 % (40.0-50.0); HGB 7.1 g/dL (13.5-17.5); MCH 29.5 pg (27.0-33.0); MCHC 32.1 % (32.0-36.0); MCV 92 fL (80-95); MPV 13.4 fL (8.0-11.0); RBC 2.41 10^6/uL (4.36-5.78); RDW 17.6 % (11.8-14.1); RDW-SD 58.4 fL
[2022-06-06 07:59] LABS: ALT 27 U/L (16-63); AST 18 U/L (15-37); Alkaline Phosphatase 67 U/L (46-116); Anion Gap 7.1 mmol/L (3-11); BUN 24 mg/dL (7-18); Bilirubin, Total 0.3 mg/dL (0.2-1.0); CO2 25.9 mmol/L (21.0-32.0); CREATININE 1.1 mg/dL (0.70-1.30); Calcium 7.9 mg/dL (8.5-10.1); Chloride 107 mmol/L (98-107); Glucose 281 mg/dL (74-106); Potassium 4.4 mmol/L (3.5-5.1); Sodium 140 mmol/L (136-145)
[2022-06-06 08:20] LABS: Platelet Count 109 10^3/uL (130-400)
[2022-06-06 08:21] LABS: Absolute Basophil Count 0.02 10^3/uL (0.0-0.2); Absolute Lymphocyte Count 0.54 10^3/uL (1.2-3.4); Absolute Monocyte Count 0.08 10^3/uL (0.1-0.8); Atypical Lymphocytes % 2; Basophilic Stippling Present; Diff Comment Manual Differential
[2022-06-06 08:22] LABS: Hypochromasia 2+; Poikilocytes 2+; Polychromasia Present
[2022-06-06 08:33] LABS: WBC 1.19 10^3/uL (4.4-10.8)
[2022-06-06 08:34] LABS: Absolute Neutrophil Count 0.46 10^3/uL (1.2-6.7)
[2022-06-06 08:50] VITALS: BP 140/64; PULSE 54; RESP 17; TEMP 36.6; O2SAT 98
[2022-06-06 09:05] VITALS: BP 142/64; PULSE 49; RESP 16; TEMP 36.7; O2SAT 97
[2022-06-06 09:25] VITALS: BP 143/65; PULSE 48; RESP 16; TEMP 36.6; O2SAT 99
[2022-06-06 09:55] VITALS: BP 147/65; PULSE 53; RESP 16; TEMP 36.3; O2SAT 98
[2022-06-06 10:20] VITALS: BP 140/64; PULSE 53; RESP 16; TEMP 36.5; O2SAT 98
[2022-06-06] MEDS: Normal Saline Flush 10 ML SYR IVP (10:36)
[2022-06-20] VITALS (11 sets, daily range): BP systolic 132–170; BP diastolic 52–68; PULSE 47–88; RESP 17–18; TEMP 36–36.7; O2SAT 96–100
[2022-06-20] MEDS: Normal Saline Flush 10 ML SYR IVP (07:35)
[2022-06-20 07:51] LABS: MCH 29.4 pg (27.0-33.0); MCHC 32.1 % (32.0-36.0); MCV 92 fL (80-95); RBC 2.28 10^6/uL (4.36-5.78); RDW 17.9 % (11.8-14.1); RDW-SD 58.8 fL
[2022-06-20 08:09] LABS: ALT 33 U/L (16-63); AST 18 U/L (15-37); Albumin 3.3 g/dL (3.4-5.0); Alkaline Phosphatase 65 U/L (46-116); Anion Gap 5.3 mmol/L (3-11); BUN 25 mg/dL (7-18); Bilirubin, Total 0.4 mg/dL (0.2-1.0); CO2 28.7 mmol/L (21.0-32.0); CREATININE 1.2 mg/dL (0.70-1.30); Calcium 7.8 mg/dL (8.5-10.1); Chloride 107 mmol/L (98-107); Estimated GFR 61.52 (mL/min/1.73m2); Glucose 216 mg/dL (74-106); Potassium 4.8 mmol/L (3.5-5.1); Sodium 141 mmol/L (136-145); Total Protein 6.2 g/dL (6.4-8.2)
[2022-06-20 08:18] LABS: Anisocytosis 2+; Diff Comment Manual Differential; Platelet Count 107 10^3/uL (130-400); Poikilocytes 2+; Polychromasia Present
[2022-06-20 08:19] LABS: Absolute Basophil Count 0.04 10^3/uL (0.0-0.2); Absolute Eosinophil Count 0.09 10^3/uL (0.0-0.7); Absolute Lymphocyte Count 0.76 10^3/uL (1.2-3.4); Absolute Monocyte Count 0.03 10^3/uL (0.1-0.8)
[2022-06-20 08:26] LABS: HCT 20.9 % (40.0-50.0); HGB 6.7 g/dL (13.5-17.5); WBC 1.27 10^3/uL (4.4-10.8)
[2022-06-20 08:27] LABS: Absolute Neutrophil Count 0.36 10^3/uL (1.2-6.7)
== END 2022-06-21 23:59 | disposition home or self-care (01) ==
LOC: INF 08:00
PROVIDERS: PCP Family Medicine; Visit Provider Internal Medicine Hematology & Oncology
DX: D75.81 Myelofibrosis (principal)
CPT/HCPCS: 36415; 36430; 80053; 86850; 86900; 86901; 86920; 85025; P9016

== ENCOUNTER 2022-07-18 09:00 | Outpatient (RCR) | payer MEDICARE, OTHER, SELFPAY ==
[2022-06-22 00:17] VITALS: BP 147/62; PULSE 54; RESP 17; TEMP 36.7
[2022-07-06] MEDS: Normal Saline Flush 10 ML SYR IVP (07:25)
[2022-07-06 07:46] LABS: Absolute Basophil Count 0.04 10^3/uL (0.0-0.2); Absolute Eosinophil Count 0.05 10^3/uL (0.0-0.7); Absolute Lymphocyte Count 0.68 10^3/uL (1.2-3.4); Basophils % 3.3; Eosinophils % 4.1; HCT 23.3 % (40.0-50.0); HGB 7.8 g/dL (13.5-17.5); Lymphocytes % 55.7; MCH 29.8 pg (27.0-33.0); MCHC 33.5 % (32.0-36.0); MCV 89 fL (80-95); Monocytes % 8.2; Neutrophils % 28.7; RBC 2.62 10^6/uL (4.36-5.78); RDW 16.5 % (11.8-14.1); RDW-SD 53.2 fL
[2022-07-06 08:09] LABS: ALT 32 U/L (16-63); AST 16 U/L (15-37); Albumin 3.1 g/dL (3.4-5.0); Alkaline Phosphatase 71 U/L (46-116); Anion Gap 6.6 mmol/L (3-11); BUN 24 mg/dL (7-18); Bilirubin, Total 0.3 mg/dL (0.2-1.0); CO2 27.4 mmol/L (21.0-32.0); CREATININE 1.1 mg/dL (0.70-1.30); Chloride 107 mmol/L (98-107); Estimated GFR 68.29 (mL/min/1.73m2); Glucose 235 mg/dL (74-106); Potassium 4.5 mmol/L (3.5-5.1); Sodium 141 mmol/L (136-145)
[2022-07-06 08:28] LABS: Platelet Count 98 10^3/uL (130-400)
[2022-07-06 08:29] LABS: Diff Comment Agrees w/ Instrument; Hypochromasia 2+
[2022-07-06 08:30] LABS: Poikilocytes 3+
[2022-07-06 08:34] LABS: WBC 1.22 10^3/uL (4.4-10.8)
[2022-07-06 08:35] LABS: Absolute Neutrophil Count 0.35 10^3/uL (1.2-6.7)
[2022-07-06 08:50] VITALS: BP 157/62; PULSE 50; RESP 18; TEMP 36.6; O2SAT 99
[2022-07-06 09:05] VITALS: BP 146/56; PULSE 51; RESP 17; TEMP 36.4; O2SAT 100
[2022-07-06 09:20] VITALS: BP 143/63; PULSE 53; RESP 17; TEMP 36.3; O2SAT 95
[2022-07-06 09:50] VITALS: BP 149/64; PULSE 50; RESP 17; TEMP 36.4; O2SAT 99
[2022-07-06 10:50] VITALS: BP 165/73; PULSE 51; RESP 16; TEMP 36.3; O2SAT 98
[2022-07-18 07:53] LABS: Absolute Lymphocyte Count 0.55 10^3/uL (1.2-3.4); HCT 21.8 % (40.0-50.0); HGB 7.1 g/dL (13.5-17.5); MCH 29.6 pg (27.0-33.0); MCHC 32.6 % (32.0-36.0); MCV 91 fL (80-95); RDW-SD 52.3 fL
[2022-07-18 08:15] VITALS: BP 157/64; PULSE 59; RESP 18; TEMP 37.3; O2SAT 98
[2022-07-18 08:29] LABS: Anisocytosis 1+; Diff Comment Manual Differential; Polychromasia Present
[2022-07-18 08:30] LABS: Poikilocytes 3+
[2022-07-18 08:31] LABS: Absolute Basophil Count 0.04 10^3/uL (0.0-0.2); Absolute Eosinophil Count 0.13 10^3/uL (0.0-0.7); Absolute Monocyte Count 0.03 10^3/uL (0.1-0.8); Platelet Count 81 10^3/uL (130-400)
[2022-07-18 08:36] LABS: WBC 1.05 10^3/uL (4.4-10.8)
[2022-07-18 08:46] LABS: ALT 27 U/L (16-63); AST 17 U/L (15-37); Albumin 3.2 g/dL (3.4-5.0); Alkaline Phosphatase 76 U/L (46-116); Anion Gap 6.9 mmol/L (3-11); BUN 20 mg/dL (7-18); Bilirubin, Total 0.4 mg/dL (0.2-1.0); CO2 26.1 mmol/L (21.0-32.0); Calcium 8.3 mg/dL (8.5-10.1); Chloride 105 mmol/L (98-107); Estimated GFR 76.56 (mL/min/1.73m2); Glucose 269 mg/dL (74-106); Potassium 4.4 mmol/L (3.5-5.1); Sodium 138 mmol/L (136-145); Total Protein 5.9 g/dL (6.4-8.2)
[2022-07-18 08:53] VITALS: BP 145/56; PULSE 54; RESP 16; TEMP 37.2; O2SAT 97
[2022-07-18 09:13] VITALS: BP 145/61; PULSE 52; RESP 16; TEMP 36.7; O2SAT 97
[2022-07-18 09:43] VITALS: BP 141/58; PULSE 54; RESP 16; TEMP 36.9; O2SAT 96
[2022-07-18] MEDS: Normal Saline Flush 10 ML SYR IVP (10:41)
== END 2022-07-21 23:59 | disposition home or self-care (01) ==
LOC: INF 09:00
PROVIDERS: PCP Family Medicine; Visit Provider Internal Medicine Hematology & Oncology
DX: D75.81 Myelofibrosis (principal)
CPT/HCPCS: 36415; 36430; 80053; 86850; 86900; 86901; 86920; 99195; 85025; P9016

== ENCOUNTER 2022-08-15 08:00 | Outpatient (RCR) | payer MEDICARE, OTHER, SELFPAY ==
[2022-07-22 00:11] VITALS: BP 141/58; PULSE 54; RESP 16; TEMP 36.9
[2022-08-01] VITALS (9 sets, daily range): BP systolic 131–155; BP diastolic 53–73; PULSE 47–57; RESP 16–18; TEMP 36.1–36.8; O2SAT 96–99
[2022-08-01] MEDS: Normal Saline Flush 10 ML SYR IVP (07:27)
[2022-08-01 07:35] LABS: Abs Immature Grans 0.01 10^3/uL (0.0-0.06); Absolute Basophil Count 0.03 10^3/uL (0.0-0.2); MCH 30.3 pg (27.0-33.0); MCV 92 fL (80-95); RBC 2.21 10^6/uL (4.36-5.78); RDW 15.8 % (11.8-14.1); RDW-SD 51.1 fL
[2022-08-01 07:59] LABS: ALT 29 U/L (16-63); AST 19 U/L (15-37); Albumin 3.3 g/dL (3.4-5.0); Alkaline Phosphatase 70 U/L (46-116); Anion Gap 6.1 mmol/L (3-11); BUN 29 mg/dL (7-18); Bilirubin, Total 0.4 mg/dL (0.2-1.0); CO2 26.9 mmol/L (21.0-32.0); Calcium 8.5 mg/dL (8.5-10.1); Chloride 107 mmol/L (98-107); Estimated GFR 76.56 (mL/min/1.73m2); Glucose 189 mg/dL (74-106); Potassium 4.3 mmol/L (3.5-5.1); Sodium 140 mmol/L (136-145); Total Protein 6.1 g/dL (6.4-8.2)
[2022-08-01 08:09] LABS: Absolute Eosinophil Count 0.16 10^3/uL (0.0-0.7); Absolute Lymphocyte Count 0.78 10^3/uL (1.2-3.4); Absolute Monocyte Count 0.03 10^3/uL (0.1-0.8); Atypical Lymphocytes % 0; Bands % 0
[2022-08-01 08:10] LABS: Diff Comment Manual Differential
[2022-08-01 08:11] LABS: Anisocytosis 1+; Poikilocytes 1+
[2022-08-01 08:12] LABS: Platelet Count 79 10^3/uL (130-400)
[2022-08-01 08:21] LABS: WBC 1.25 10^3/uL (4.4-10.8)
[2022-08-01 08:22] LABS: Absolute Neutrophil Count 0.26 10^3/uL (1.2-6.7); HCT 20.3 % (40.0-50.0); HGB 6.7 g/dL (13.5-17.5)
[2022-08-15 07:31] VITALS: BP 143/62; PULSE 50; RESP 20; TEMP 36.5; O2SAT 98
[2022-08-15 07:42] LABS: HCT 21.3 % (40.0-50.0); HGB 7.2 g/dL (13.5-17.5); MCH 30.8 pg (27.0-33.0); MCHC 33.8 % (32.0-36.0); MCV 91 fL (80-95); MPV 13.6 fL (8.0-11.0); RBC 2.34 10^6/uL (4.36-5.78); RDW 14.8 % (11.8-14.1); RDW-SD 48.7 fL
[2022-08-15] MEDS: Normal Saline Flush 10 ML SYR IVP (07:43)
[2022-08-15 08:00] LABS: ALT 30 U/L (16-63); AST 17 U/L (15-37); Albumin 3.3 g/dL (3.4-5.0); Alkaline Phosphatase 76 U/L (46-116); Anion Gap 6.8 mmol/L (3-11); BUN 24 mg/dL (7-18); Bilirubin, Total 0.4 mg/dL (0.2-1.0); CO2 26.2 mmol/L (21.0-32.0); CREATININE 1.2 mg/dL (0.70-1.30); Chloride 105 mmol/L (98-107); Estimated GFR 61.52 (mL/min/1.73m2); Glucose 231 mg/dL (74-106); Potassium 4.4 mmol/L (3.5-5.1); Sodium 138 mmol/L (136-145)
[2022-08-15 08:10] LABS: Bands % 4
[2022-08-15 08:11] LABS: Absolute Basophil Count 0.03 10^3/uL (0.0-0.2); Absolute Eosinophil Count 0.05 10^3/uL (0.0-0.7); Absolute Monocyte Count 0.01 10^3/uL (0.1-0.8)
[2022-08-15 08:12] LABS: Anisocytosis 1+; Diff Comment Manual Differential; Polychromasia Present
[2022-08-15 08:13] LABS: Poikilocytes 1+
[2022-08-15 08:14] LABS: Platelet Count 102 10^3/uL (130-400)
[2022-08-15 08:27] LABS: WBC 0.99 10^3/uL (4.4-10.8)
[2022-08-15 08:40] VITALS: BP 143/62; PULSE 50; RESP 20; TEMP 36.7; O2SAT 99
[2022-08-15 08:55] VITALS: BP 129/56; PULSE 50; RESP 19; TEMP 36.5; O2SAT 99
[2022-08-15 09:10] VITALS: BP 134/56; PULSE 52; RESP 19; TEMP 36.4; O2SAT 96
[2022-08-15 09:25] VITALS: BP 145/65; PULSE 54; RESP 20; TEMP 36.6; O2SAT 94
[2022-08-15 10:24] VITALS: BP 151/71; PULSE 52; RESP 20; TEMP 36.7; O2SAT 100
== END 2022-08-21 23:59 | disposition home or self-care (01) ==
LOC: INF 08:00
PROVIDERS: PCP Family Medicine; Visit Provider Internal Medicine Hematology & Oncology
DX: D75.81 Myelofibrosis (principal)
CPT/HCPCS: 36415; 36430; 80053; 86850; 86900; 86901; 86920; 85025; P9016

== ENCOUNTER 2022-09-12 02:39 | Outpatient (RCR) | payer MEDICARE, OTHER, SELFPAY ==
[2022-08-22 00:05] VITALS: BP 151/71; PULSE 52; RESP 20; TEMP 36.7
[2022-08-29] VITALS (9 sets, daily range): BP systolic 130–176; BP diastolic 62–75; PULSE 49–61; RESP 16–18; TEMP 36.5–37.3; O2SAT 96–98
[2022-08-29 07:52] LABS: MCH 29.8 pg (27.0-33.0); MCHC 32.3 % (32.0-36.0); MCV 92 fL (80-95); Nucleated RBC 1.8 % (0.0-0.3); RBC 2.15 10^6/uL (4.36-5.78); RDW 14.7 % (11.8-14.1); RDW-SD 47.7 fL; Reticulocyte 0.7 % (0.5-2.4)
[2022-08-29 07:59] LABS: ALT 26 U/L (16-63); AST 15 U/L (15-37); Albumin 3.1 g/dL (3.4-5.0); Alkaline Phosphatase 77 U/L (46-116); Anion Gap 6.5 mmol/L (3-11); BUN 21 mg/dL (7-18); Bilirubin, Total 0.4 mg/dL (0.2-1.0); CO2 25.5 mmol/L (21.0-32.0); CREATININE 1.1 mg/dL (0.70-1.30); Chloride 103 mmol/L (98-107); Estimated GFR 68.29 (mL/min/1.73m2); Glucose 250 mg/dL (74-106); Potassium 4.4 mmol/L (3.5-5.1); Sodium 135 mmol/L (136-145)
[2022-08-29 08:16] LABS: Anisocytosis 3+; Diff Comment Manual Differential; Polychromasia Present
[2022-08-29 08:17] LABS: Absolute Basophil Count 0.11 10^3/uL (0.0-0.2); Absolute Eosinophil Count 0.16 10^3/uL (0.0-0.7); Absolute Lymphocyte Count 0.71 10^3/uL (1.2-3.4); Absolute Monocyte Count 0.01 10^3/uL (0.1-0.8); Atypical Lymphocytes % 1; Platelet Count 86 10^3/uL (130-400); Poikilocytes 2+
[2022-08-29 08:27] LABS: Absolute Neutrophil Count 0.13 10^3/uL (1.2-6.7); HCT 19.8 % (40.0-50.0); HGB 6.4 g/dL (13.5-17.5); WBC 1.12 10^3/uL (4.4-10.8)
[2022-08-29] MEDS: Normal Saline Flush 10 ML SYR IVP (09:25)
[2022-09-12] VITALS (9 sets, daily range): BP systolic 145–167; BP diastolic 62–76; PULSE 54–64; RESP 16–19; TEMP 36.4–36.8; O2SAT 98–100
[2022-09-12 07:37] LABS: Absolute Lymphocyte Count 0.56 10^3/uL (1.2-3.4); HCT 21.5 % (40.0-50.0); MCH 28.9 pg (27.0-33.0); MCHC 31.6 % (32.0-36.0); MCV 92 fL (80-95); RBC 2.35 10^6/uL (4.36-5.78); RDW 15.4 % (11.8-14.1); Reticulocyte 0.6 % (0.5-2.4)
[2022-09-12] MEDS: Normal Saline Flush 10 ML SYR IVP (07:38)
[2022-09-12 07:50] LABS: Reticulocyte 0.5 % (0.5-2.4)
[2022-09-12 07:59] LABS: ALT 30 U/L (16-63); AST 21 U/L (15-37); Alkaline Phosphatase 78 U/L (46-116); Anion Gap 6.2 mmol/L (3-11); BUN 22 mg/dL (7-18); Bilirubin, Total 0.4 mg/dL (0.2-1.0); CO2 25.8 mmol/L (21.0-32.0); CREATININE 1.2 mg/dL (0.70-1.30); Calcium 7.9 mg/dL (8.5-10.1); Chloride 106 mmol/L (98-107); Estimated GFR 61.52 (mL/min/1.73m2); Glucose 250 mg/dL (74-106); Potassium 4.5 mmol/L (3.5-5.1); Sodium 138 mmol/L (136-145); Total Protein 5.8 g/dL (6.4-8.2)
[2022-09-12 08:10] LABS: Absolute Eosinophil Count 0.24 10^3/uL (0.0-0.7); Absolute Monocyte Count 0.01 10^3/uL (0.1-0.8); Platelet Count 88 10^3/uL (130-400)
[2022-09-12 08:11] LABS: Anisocytosis 2+; Diff Comment Manual Differential; Poikilocytes 2+
[2022-09-12 08:17] LABS: Absolute Neutrophil Count 0.27 10^3/uL (1.2-6.7); WBC 1.08 10^3/uL (4.4-10.8)
[2022-09-12 08:18] LABS: HGB 6.8 g/dL (13.5-17.5)
== END 2022-09-20 23:59 | disposition home or self-care (01) ==
LOC: INF 02:39
PROVIDERS: PCP Family Medicine; Visit Provider Internal Medicine Hematology & Oncology
DX: D75.81 Myelofibrosis (principal)
CPT/HCPCS: 36415; 36430; 80053; 86850; 86900; 86901; 86920; 85025; 85045; P9016

== ENCOUNTER 2022-09-26 03:07 | Outpatient (RCR) | payer MEDICARE, OTHER, SELFPAY ==
[2022-09-21 00:15] VITALS: BP 148/76; PULSE 56; RESP 18; TEMP 36.6
[2022-09-26] MEDS: Normal Saline Flush 10 ML SYR IVP (07:10)
[2022-09-26 07:39] LABS: HCT 22.2 % (40.0-50.0); HGB 7.2 g/dL (13.5-17.5); MCH 29.5 pg (27.0-33.0); MCHC 32.4 % (32.0-36.0); MCV 91 fL (80-95); RBC 2.44 10^6/uL (4.36-5.78); RDW 15.1 % (11.8-14.1); RDW-SD 49.1 fL; Reticulocyte 0.4 % (0.5-2.4)
[2022-09-26 07:52] LABS: Absolute Basophil Count 0.05 10^3/uL (0.0-0.2); Absolute Eosinophil Count 0.14 10^3/uL (0.0-0.7); Absolute Lymphocyte Count 0.81 10^3/uL (1.2-3.4); Absolute Monocyte Count 0.03 10^3/uL (0.1-0.8); Diff Comment Manual Differential; Platelet Count 95 10^3/uL (130-400); RBC Morphology Normal
[2022-09-26 07:53] LABS: ALT 34 U/L (16-63); AST 19 U/L (15-37); Albumin 3.1 g/dL (3.4-5.0); Alkaline Phosphatase 82 U/L (46-116); Anion Gap 6.2 mmol/L (3-11); BUN 23 mg/dL (7-18); Bilirubin, Total 0.4 mg/dL (0.2-1.0); CO2 26.8 mmol/L (21.0-32.0); Calcium 7.9 mg/dL (8.5-10.1); Chloride 105 mmol/L (98-107); Estimated GFR 76.56 (mL/min/1.73m2); Glucose 287 mg/dL (74-106); Potassium 4.2 mmol/L (3.5-5.1); Sodium 138 mmol/L (136-145)
[2022-09-26 08:00] VITALS: BP 156/72; PULSE 61; RESP 17; TEMP 37.4; O2SAT 99
[2022-09-26 08:10] LABS: Absolute Neutrophil Count 0.24 10^3/uL (1.2-6.7); WBC 1.27 10^3/uL (4.4-10.8)
[2022-09-26 08:39] VITALS: BP 153/67; PULSE 61; RESP 18; TEMP 37.2; O2SAT 100
[2022-09-26 09:15] VITALS: BP 169/72; PULSE 54; RESP 16; TEMP 36.9; O2SAT 100
[2022-09-26 09:45] VITALS: BP 155/66; PULSE 60; RESP 17; TEMP 36.9; O2SAT 96
[2022-09-26 10:45] VITALS: BP 168/76; PULSE 63; RESP 17; TEMP 37.2; O2SAT 98
== END 2022-10-21 23:59 | disposition home or self-care (01) ==
LOC: INF 03:07
PROVIDERS: PCP Family Medicine; Visit Provider Internal Medicine Hematology & Oncology
DX: D75.81 Myelofibrosis (principal)
CPT/HCPCS: 36415; 36430; 80053; 86850; 86900; 86901; 86920; 85025; 85045; P9016

== ENCOUNTER 2022-11-21 02:30 | Outpatient (RCR) | payer MEDICARE, OTHER, SELFPAY ==
[2022-10-22 00:08] VITALS: BP 168/76; PULSE 63; RESP 17; TEMP 37.2
[2022-10-24] VITALS (11 sets, daily range): BP systolic 136–176; BP diastolic 59–81; PULSE 51–63; RESP 16–18; TEMP 36.1–36.7; O2SAT 96–100
[2022-10-24 07:47] LABS: HCT 21.9 % (40.0-50.0); HGB 7.1 g/dL (13.5-17.5); MCH 29.2 pg (27.0-33.0); MCHC 32.4 % (32.0-36.0); MCV 90 fL (80-95); Platelet Count 95 10^3/uL (130-400); RBC 2.43 10^6/uL (4.36-5.78); RDW 14.8 % (11.8-14.1); RDW-SD 47.3 fL; Reticulocyte 0.6 % (0.5-2.4)
[2022-10-24 08:05] LABS: Bands % 2
[2022-10-24 08:06] LABS: Absolute Basophil Count 0.01 10^3/uL (0.0-0.2); Absolute Lymphocyte Count 0.81 10^3/uL (1.2-3.4); Diff Comment Manual Differential; RBC Morphology Normal
[2022-10-24 08:10] LABS: ALT 34 U/L (16-63); AST 18 U/L (15-37); Albumin 3.2 g/dL (3.4-5.0); Alkaline Phosphatase 81 U/L (46-116); Anion Gap 5.4 mmol/L (3-11); BUN 28 mg/dL (7-18); Bilirubin, Total 0.3 mg/dL (0.2-1.0); CO2 26.6 mmol/L (21.0-32.0); CREATININE 1.1 mg/dL (0.70-1.30); Calcium 8.2 mg/dL (8.5-10.1); Chloride 108 mmol/L (98-107); Estimated GFR 68.29 (mL/min/1.73m2); Glucose 252 mg/dL (74-106); Potassium 4.3 mmol/L (3.5-5.1); Sodium 140 mmol/L (136-145); Total Protein 6.3 g/dL (6.4-8.2)
[2022-10-24 08:11] LABS: Absolute Neutrophil Count 0.27 10^3/uL (1.2-6.7)
[2022-10-24 08:12] LABS: WBC 1.19 10^3/uL (4.4-10.8)
[2022-10-24] MEDS: Normal Saline Flush 10 ML SYR IVP (08:21)
[2022-11-07] MEDS: Normal Saline Flush 10 ML SYR IVP (07:34)
[2022-11-07 07:43] LABS: Abs Immature Grans 0.01 10^3/uL (0.0-0.06); HCT 21.8 % (40.0-50.0); HGB 7.2 g/dL (13.5-17.5); MCH 29.5 pg (27.0-33.0); MCV 89 fL (80-95); MPV 12.3 fL (8.0-11.0); RBC 2.44 10^6/uL (4.36-5.78); RDW 15.1 % (11.8-14.1); RDW-SD 47.6 fL; Reticulocyte 0.6 % (0.5-2.4)
[2022-11-07 07:58] LABS: ALT 33 U/L (16-63); AST 21 U/L (15-37); Albumin 3.1 g/dL (3.4-5.0); Alkaline Phosphatase 80 U/L (46-116); Anion Gap 4.9 mmol/L (3-11); BUN 21 mg/dL (7-18); Bilirubin, Total 0.4 mg/dL (0.2-1.0); CO2 26.1 mmol/L (21.0-32.0); CREATININE 1.1 mg/dL (0.70-1.30); Calcium 8.1 mg/dL (8.5-10.1); Chloride 106 mmol/L (98-107); Estimated GFR 68.29 (mL/min/1.73m2); Glucose 253 mg/dL (74-106); Potassium 4.5 mmol/L (3.5-5.1); Sodium 137 mmol/L (136-145); Total Protein 5.9 g/dL (6.4-8.2)
[2022-11-07 08:06] LABS: Platelet Count 96 10^3/uL (130-400)
[2022-11-07 08:07] LABS: Bands % 0
[2022-11-07 08:08] LABS: Absolute Basophil Count 0.01 10^3/uL (0.0-0.2); Absolute Eosinophil Count 0.15 10^3/uL (0.0-0.7); Absolute Lymphocyte Count 0.72 10^3/uL (1.2-3.4); Absolute Monocyte Count 0.03 10^3/uL (0.1-0.8); Atypical Lymphocytes % 0; Diff Comment Manual Differential; Metamyelocytes % 1
[2022-11-07 08:09] LABS: Microcytosis 1+
[2022-11-07 08:17] LABS: WBC 1.12 10^3/uL (4.4-10.8)
[2022-11-07 08:38] VITALS: BP 147/59; PULSE 62; RESP 18; TEMP 36.9; O2SAT 100
[2022-11-07 08:53] VITALS: BP 147/69; PULSE 60; RESP 17; TEMP 37.2; O2SAT 100
[2022-11-07 09:10] VITALS: BP 154/55; PULSE 61; RESP 17; TEMP 37; O2SAT 98
[2022-11-07 09:40] VITALS: BP 156/72; PULSE 60; RESP 17; TEMP 37.3; O2SAT 98
[2022-11-07 10:40] VITALS: BP 163/75; PULSE 53; RESP 17; TEMP 37.1; O2SAT 98
[2022-11-21 07:46] LABS: HCT 26.1 % (40.0-50.0); HGB 8.8 g/dL (13.5-17.5); MCH 29.2 pg (27.0-33.0); MCHC 33.7 % (32.0-36.0); MCV 87 fL (80-95); RBC 3.01 10^6/uL (4.36-5.78); RDW 14.5 % (11.8-14.1); RDW-SD 45.3 fL; Reticulocyte 0.5 % (0.5-2.4)
[2022-11-21 08:01] LABS: ALT 28 U/L (16-63); AST 16 U/L (15-37); Albumin 3.1 g/dL (3.4-5.0); Alkaline Phosphatase 84 U/L (46-116); Anion Gap 7.3 mmol/L (3-11); BUN 24 mg/dL (7-18); Bands % 1; Bilirubin, Total 0.5 mg/dL (0.2-1.0); CO2 25.7 mmol/L (21.0-32.0); Calcium 8.2 mg/dL (8.5-10.1); Chloride 107 mmol/L (98-107); Estimated GFR 76.56 (mL/min/1.73m2); Glucose 211 mg/dL (74-106); Sodium 140 mmol/L (136-145)
[2022-11-21 08:02] LABS: Absolute Basophil Count 0.03 10^3/uL (0.0-0.2); Absolute Eosinophil Count 0.14 10^3/uL (0.0-0.7); Absolute Lymphocyte Count 0.59 10^3/uL (1.2-3.4); Absolute Monocyte Count 0.02 10^3/uL (0.1-0.8); Atypical Lymphocytes % 3; Diff Comment Manual Differential; Other Cells % 3; RBC Morphology Normal
[2022-11-21 08:03] LABS: Platelet Count 81 10^3/uL (130-400)
[2022-11-21 08:18] LABS: Absolute Neutrophil Count 0.24 10^3/uL (1.2-6.7); WBC 1.06 10^3/uL (4.4-10.8)
== END 2022-11-21 23:59 | disposition home or self-care (01) ==
LOC: INF 02:30
PROVIDERS: PCP Family Medicine; Visit Provider Internal Medicine Hematology & Oncology
DX: D75.81 Myelofibrosis (principal)
CPT/HCPCS: 36415; 36430; 80053; 86850; 86900; 86901; 86920; 85025; 85045; P9016